=== PATIENT | female | born 1975 | race Caucasian/White ===

== ENCOUNTER 2016-04-28 11:39 | Emergency (ER) | payer BC ==
[2016-04-28 12:20] VITALS: BP 135/79
[2016-04-28] MEDS ORDERED: Ondansetron 4 MG Tab.DIS PO ONE (13:02)
--- NOTE | 2016-04-28 13:02 | EDM.PDOC ---
ED HPI ENT - General Chief Complaint: ENT Problem Stated Complaint: POSSIBLE SINUS INFECTION Time Seen by Provider: 04/28/16 12:53 Source of Information: Reports: Patient History Limitations: Reports: No limitations - History of Present Illness INITIAL COMMENTS - FREE TEXT/NARRATIVE: HISTORY AND PHYSICAL: History of present illness: [40-year-old female recently diagnosed by primary care with sinusitis and prescribed Zithromax now presents emergency department because of continued sinus congestion body aches and nausea and vomiting patient denies possibility of because she's had her tubes tied. She has clear rhinorrhea with sinus pressure and congestion. Patient feels body aches and fatigue. She's had these symptoms for several days. Denies fevers chills sweats or shaking chills. No headache or stiff neck. Patient is concerned she may be getting dehydrated because she's been vomiting and unable to keep down fluids and medications. Review of systems: As per history of present illness and below otherwise all systems reviewed and negative. Past medical history: As per history of present illness and as reviewed below otherwise noncontributory. Surgical history: As per history of present illness and as reviewed below otherwise noncontributory. Social history: No reported history of drug or alcohol abuse. Family history: As per history of present illness and as reviewed below otherwise noncontributory. Physical exam: HEENT: Atraumatic, normocephalic, pupils reactive, negative for conjunctival pallor or scleral icterus, mucous membranes moist, throat clear, neck supple, nontender, trachea midline. Clear rhinorrhea. Lungs: Clear to auscultation, breath sounds equal bilaterally, chest nontender. Heart: S1S2, regular, negative for clicks, rubs, or JVD. Abdomen: Soft, nondistended, nontender. Negative for masses or hepatosplenomegaly. Negative for costovertebral tenderness. Pelvis: Stable nontender. Genitourinary: Deferred. Rectal: Deferred. Extremities: Atraumatic, negative for cords or calf pain. Neurovascular unremarkable. Neuro: Awake, alert, oriented. Cerebellum unremarkable. Motor and sensory unremarkable throughout. Exam nonfocal. Diagnostics: [] Therapeutics: [] Impression: [] Plan: [Discussed with patient signs and symptoms consistent with viral syndrome. He is aware to rest and drink plenty of fluids as well as use Zofran as needed for nausea. No further workup or treatment indicated at this time as patient's vital signs are normal and her mucous members are moist. She has no significant clinical signs of dehydration. Clear rhinorrhea exam otherwise benign. Patient agrees with outpatient followup. strict return precautions given. Definitive disposition and diagnosis as appropriate pending reevaluation and review of above. Severity: moderate - Related Data Allergies/ADRs: Allergies Allergy/AdvReac Type Severity Reaction Status Date / Time codeine Allergy Nausea Verified 04/28/16 12:11 Home Meds: Home Meds Lactobac Cmb #3/Fos/Pantethine [Probiotic & Acidophilus] 1 cap PO DAILY [History] QUEtiapine Fumarate [Seroquel] 1 tab PO BEDTIME 05/14/15 [History] Ondansetron [Zofran ODT] 4 mg SL Q4H PRN #16 tab.dis 04/28/16 [Rx] Prednisone [IJD: predniSONE] 20 mg PO WITHBREAKFAST 04/28/16 [History] Z-Pack 1 tab PO ASDIRECTED 04/28/16 [History] Past Medical History HEENT History: Reports: Other (see below) Other HEENT History: wears glasses Cardiovascular History: Reports: None Respiratory History: Reports: None Gastrointestinal History: Reports: None Genitourinary History: Reports: Renal calculus, Other (see below) Other Genitourinary History: history of kidney stones in 2010, resolved, no return of symptoms 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 Musculoskeletal History: Reports: Arthritis, Fracture Other Musculoskeletal History: hx of right shoulder fx, has pain in right shoulder and both knees Neurological History: Reports: None Psychiatric History: Reports: Anxiety Endocrine/Metabolic History: Reports: None Hematologic History: Reports: None Immunologic History: Reports: None Oncologic (Cancer) History: Reports: None Dermatologic History: Reports: Psoriasis Other Dermatologic History: legs and chest - Infectious Disease History Infectious Disease History: Reports: Chicken pox - Past Surgical History Head Surgeries/Procedures: Reports: None HEENT Surgical History: Reports: None Cardiovascular Surgical History: Reports: None Respiratory Surgical History: Reports: None GI Surgical History: Reports: EGD Female Surgical History: Reports: None Endocrine Surgical History: Reports: None Neurological Surgical History: Reports: None Musculoskeletal Surgical History: Reports: Arthroscopic knee Oncologic Surgical History: Reports: None Social & Family History - Tobacco Use Smoking Status *Q: Never Smoker Years of Tobacco use: 15 Packs/Tins Daily: 0.5 Second Hand Smoke Exposure: No - Caffeine Use Caffeine Use: Reports: Coffee Caffeine Use Comment: 1 cup/day - Alcohol Use Days Per Week of Alcohol Use: 0 - Recreational Drug Use Recreational Drug Use: No Drug Use in Last 12 Months: No ED ROS ENT - Review of Systems Review Of Systems: See Below (See history of present illness) ED EXAM, ENT - Physical Exam Exam: See Below (See history of present illness) Course - Vital Signs Last Recorded V/S: Last Vital Signs Temp 36.4 C 04/28/16 12:14 Pulse 70 04/28/16 12:14 Resp 18 04/28/16 12:14 BP 135/79 04/28/16 12:14 Pulse Ox 92 L 04/28/16 12:14 - Orders/Labs/Meds Meds: Medications Discontinued Medications Generic Name Dose Route Start Last Admin Trade Name Freq PRN Reason Stop Dose Admin Ondansetron HCl 4 mg 04/28/16 13:02 Zofran Odt PO 04/28/16 13:03 ONETIME ONE Departure - Departure Time of Disposition: 13:02 Disposition: Home, Self-Care 01 Condition: good Clinical Impression: Viral syndrome, Sinusitis, acute, Vomiting Prescriptions: Ondansetron [Zofran ODT] 4 mg SL Q4H PRN #16 tab.dis PRN Reason: Nausea Referrals: Mary Valadez DO [Primary Care Provider] - Forms: ED Department Discharge Additional Instructions: Your symptoms suggest a you have a viral syndrome. Your sinus congestion and pressure may be from the viral infection along however your DrEmily has prescribe Zithromax for you in case of the possibility of bacterial infection. Rest and drink plenty of fluids. Use ibuprofen every 6 hours as needed for pain and Tylenol every 4 hours as well as needed. Take Zofran as needed for nausea/ vomiting. Follow up with your DrEmily in one to 2 days and return immediately for new severe or worsening symptoms.
== END 2016-04-28 13:27 | disposition home or self-care (01) ==
LOC: MW.ED 11:39
DX: J32.9 Chronic sinusitis, unspecified (principal); R11.10 Vomiting, unspecified; B34.9 Viral infection, unspecified; Z88.5 Allergy status to narcotic agent; Z79.899 Other long term (current) drug therapy
CPT/HCPCS: 99282; 99283

== ENCOUNTER → 2016-06-04 | Outpatient (CLI) | payer BC ==
--- NOTE | 2016-06-04 11:29 | MR ---
EXAMINATION: MRI right knee HISTORY: Pain COMPARISON: None TECHNIQUE: Multiplanar multisequence images obtained of the right knee without contrast. FINDINGS: The patellar and quadriceps tendons are intact. The ACL and the PCL are intact. There is a horizontal tear of the posterior horn of the medial meniscus with mild truncation of the body. The lateral meniscus appears grossly intact. The medial and lateral collateral ligament complexes appear intact. There is a small joint effusion. There are notably thickened plicae within the suprapatella r joint space. Moderate articular cartilage thinning and irregularity is noted within the patellofem oral compartment. Mild articular cartilage irregularity is noted within the medial compartment. Ther e is a trace edema within the posterior aspect of the tibial plateau. IMPRESSION: 1. Horizontal tear of the posterior horn of the medial meniscus. 2. Moderate chondromalacia patellae with irregular and thickened plicae within the suprapatellar kristofer nt space. 3. Mild chondromalacia within the medial compartment.
== END ==
LOC: MW.MRI 08:24
PROVIDERS: ATTEND Orthopaedic Surgery
DX: M24.561 Contracture, right knee (principal); S83.241A Other tear of medial meniscus, current injury, right knee, initial encounter; M22.41 Chondromalacia patellae, right knee
CPT/HCPCS: 73721-26-RT; 73721-RT

== ENCOUNTER 2016-10-12 10:25 | Day surgery (SDC) | payer BC ==
[~2016-10-12 10:25] MED LIST: Lactated Ringers 1,000 ML IV SCH; Propofol 200 MG/20 ML SDV ONE; Sodium Chloride 0.9% 10 ML Syringe FLUSH PRN; Sodium Chloride 0.9% 2.5 ML Syringe FLUSH PRN; fentaNYL 100 MCG/2 ML SDV ONE
[2016-10-12] MEDS ORDERED: Midazolam 1 MG/ML 2 ML SDV ONE (10:26)
[2016-10-12] MEDS ORDERED: Dexamethasone 4 MG/ML 5 ML MDV ONE (10:27)
[2016-10-12] MEDS ORDERED: Ondansetron 4 MG/2 ML SDV ONE (10:27)
--- NOTE | 2016-10-12 11:09 | PCM.PREANE ---
Preanesthetic Assessment - Anesthesia/Transfusion/Family Hx Anesthesia History: Prior Anesthesia Without Reaction Family History of Anesthesia Reaction: No Transfusion History: No Prior Transfusion(s) Intubation History: Unknown - Review of Systems General: No Symptoms Pulmonary: No Symptoms Cardiovascular: No Symptoms Gastrointestinal: No Symptoms Neurological: No Symptoms Other: Reports: None - Physical Assessment NPO Status Date: 10/11/16 NPO Status Time: 20:30 O2 Sat by Pulse Oximetry: 98 Respiratory Rate: 16 Vital Signs: Last Vital Signs Temp 36.6 C 10/12/16 10:47 Pulse 50 L 10/12/16 10:47 Resp 16 10/12/16 10:47 BP 112/77 10/12/16 10:47 Pulse Ox 98 10/12/16 10:47 Height: 1.68 m Weight: 63.049 kg ASA Class: 1 Mental Status: Alert & Oriented x3 Airway Class: Mallampati = 2 Dentition: Reports: Normal Dentition Thyro-Mental Finger Breadths: 3 Mouth Opening Finger Breadths: 3 ROM/Head Extension: Full Lungs: Clear to Auscultation, Normal Respiratory Effort Cardiovascular: Regular Rate, Regular Rhythm - Lab Values: Laboratory Last Values WBC 6.90 K/uL (4.0-11.0) 10/12/16 10:45 RBC 5.05 M/uL (4.30-5.90) 10/12/16 10:45 Hgb 15.0 g/dL (12.0-16.0) 10/12/16 10:45 Hct 43.4 % (36.0-46.0) 10/12/16 10:45 MCV 85.9 fL (80.0-98.0) 10/12/16 10:45 MCH 29.7 pg (27.0-32.0) 10/12/16 10:45 MCHC 34.6 g/dL (31.0-37.0) 10/12/16 10:45 RDW Std Deviation 40.6 fl (28.0-62.0) 10/12/16 10:45 RDW Coeff of Pallavi 13 % (11.0-15.0) 10/12/16 10:45 Plt Count 174 K/uL (150-400) 10/12/16 10:45 MPV 11.40 fL (7.40-12.00) 10/12/16 10:45 Nucleated RBC % 0.0 /100WBC 10/12/16 10:45 Nucleated RBCs # 0 K/uL 10/12/16 10:45 - Allergies Allergies/Adverse Reactions: Allergies Allergy/AdvReac Type Severity Reaction Status Date / Time codeine Allergy Nausea Verified 04/28/16 12:11 - Blood Blood Available: No - Anesthesia Plan Pre-Op Medication Ordered: None - Acknowledgements Anesthesia Type Planned: MAC Pt an Appropriate Candidate for the Planned Anesthesia: Yes Alternatives and Risks of Anesthesia Discussed w Pt/Guardian: Yes Pt/Guardian Understands and Agrees with Anesthesia Plan: Yes PreAnesthesia Questionnaire HEENT History: Reports: Other (See Below) Other HEENT History: wears glasses Cardiovascular History: Reports: None Respiratory History: Reports: None Gastrointestinal History: Reports: Other (See Below) Other Gastrointestinal History: hx gastric ulcer, occasional heartburn Genitourinary History: Reports: Renal Calculus, Other (See Below) Other Genitourinary History: history of kidney stones 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: Musculoskeletal History: Reports: Arthritis Neurological History: Reports: None Psychiatric History: Reports: Anxiety Endocrine/Metabolic History: Reports: None Hematologic History: Reports: None Immunologic History: Reports: None Oncologic (Cancer) History: Reports: None Dermatologic History: Reports: Psoriasis - Infectious Disease History Infectious Disease History: Reports: Chicken Pox - Past Surgical History Head Surgeries/Procedures: Reports: None HEENT Surgical History: Reports: None, Oral Surgery Cardiovascular Surgical History: Reports: None Respiratory Surgical History: Reports: None GI Surgical History: Reports: EGD Female Surgical History: Reports: LEEP, Tubal Ligation Endocrine Surgical History: Reports: None Neurological Surgical History: Reports: None Musculoskeletal Surgical History: Reports: Arthroscopic Knee Other Musculoskeletal Surgeries/Procedures:: multiple knee arthroscopies (4 on the right and 2 on the left) Oncologic Surgical History: Reports: None - SUBSTANCE USE Smoking Status *Q: Former Smoker (quit 9 [id number] ago) Tobacco Use Within Last Twelve Months:  Second Hand Smoke Exposure: No Days Per Week of Alcohol Use: 0 Recreational Drug Use History: No - HOME MEDS Home Medications: Home Meds Lactobac Cmb #3/Fos/Pantethine [Probiotic & Acidophilus] 1 cap PO DAILY [History] QUEtiapine Fumarate [Seroquel] 1 tab PO BEDTIME 05/14/15 [History] cloNIDine HCl [Catapres] 0.1 mg PO BEDTIME 10/06/16 [History] - CURRENT (IN HOUSE) MEDS Current Meds: Current Medications Lactated Ringer's (Ringers, Lactated) 1,000 mls @ 125 mls/hr IV ASDIRECTED CHEKO Sodium Chloride (Saline Flush) 10 ml FLUSH ASDIRECTED PRN PRN Reason: Keep Vein Open Sodium Chloride (Saline Flush) 2.5 ml FLUSH ASDIRECTED PRN PRN Reason: Keep Vein Open Discontinued Medications Dexamethasone (Dexamethasone) Confirm Administered Dose 20 mg .ROUTE .STK-MED ONE Stop: 10/12/16 10:28 Fentanyl (Sublimaze) Confirm Administered Dose 100 mcg .ROUTE .STK-MED ONE Stop: 10/12/16 10:26 Lidocaine HCl (Xylocaine-Mpf 1%) Confirm Administered Dose 5 ml .ROUTE .STK-MED ONE Stop: 10/12/16 10:28 Midazolam HCl (Versed 1 Mg/Ml) Confirm Administered Dose 2 mg .ROUTE .STK-MED ONE Stop: 10/12/16 10:27 Ondansetron HCl (Zofran) Confirm Administered Dose 4 mg .ROUTE .STK-MED ONE Stop: 10/12/16 10:28 Propofol (Diprivan 20 Ml) Confirm Administered Dose 200 mg .ROUTE .STK-MED ONE Stop: 10/12/16 10:26
[2016-10-12] MEDS ORDERED: Lidocaine 1% with EPINEPHrine 1:100,000 20 ML MDV ONE ×2 (11:32→12:25)
--- NOTE | 2016-10-12 11:50 | PCM.OPNOTE ---
- General Post-Op/Procedure Note Date of Surgery/Procedure: 10/12/16 Operative Procedure(s): LEEP of cervix Findings: BROOKS II Pre Op Diagnosis: BROOKS II Post-Op Diagnosis: Same Anesthesia Technique: General LMA Primary Surgeon: Tere Turner Pathology: cervix Fluid Replacement, Intraop: 600 EBL in mLs: 10 Condition: Good Free Text/Narrative:: Dictation [id number]
[2016-10-12] MEDS ORDERED: fentaNYL 100 MCG/2 ML SDV ONE ×2 (12:03→12:32)
[2016-10-12] MEDS: fentaNYL 100 MCG/2 ML SDV IVPUSH PRN ×2 (12:32→12:37)
[2016-10-12 13:02] VITALS: BP 110/76
--- NOTE | 2016-10-12 20:41 | OR ---
SURGEON: Tere Turner M.D. DATE OF PROCEDURE: 10/12/2016 PREOPERATIVE DIAGNOSIS: BROOKS II. POSTOPERATIVE DIAGNOSIS: BROOKS II. PROCEDURE: Loop electrosurgical excision procedure of the cervix. ESTIMATED BLOOD LOSS: 10 mL. ANESTHESIA: General LMA. FLUIDS: 600 mL crystalloid. COMPLICATIONS: None known. FINDINGS: BROOKS II. DISPOSITION: The patient to PACU, stable. PROCEDURE IN DETAIL: Iris is a 40-year-old female, who has had ongoing difficulties with persistent BROOKS II. She has recently had a colposcopy which confirmed BROOKS II on biopsy. At this point, we have discussed options for treatment and she would like to proceed with surgical intervention from a LEEP. Risks of procedure have been discussed with her and proper consent was obtained. The patient was taken to the operating room, where she underwent general LMA. She was placed in modified dorsal lithotomy position. She was prepped and draped in the usual aseptic manner. The bladder was drained. A time-out was performed. A coated speculum was introduced in the vagina as well as sidewall retractors. The cervix was visualized. The cervix was now prepped with Lugol solution and then injected with 1% lidocaine with epinephrine circumferentially along the cervix. Please see nurse's notes for total amount of local dispensed during the procedure. Using a 20 x 8 mm loop, the posterior lip of the cervix was excised followed by the anterior lip. A 10 mm endocervical hat was now excised. The cervical os was sounded with an endocervical curette to help diminish the rest of her stenosis. The bed of the wound was now cauterized with rollerball followed by placement of Monsel's. Hemostasis appeared evident. The patient tolerated the procedure well. Sponge and instrument counts were correct x2. All instruments were removed from the vagina. The patient will go to PACU in stable condition. Specimens to pathology. JAMEE / MAKAYLA /[id number]
== END 2016-10-12 13:05 | disposition home or self-care (01) ==
LOC: MW.SDS 10:25
PROVIDERS: ATTEND Obstetrics & Gynecology
DX: N87.1 Moderate cervical dysplasia (principal); F41.8 Other specified anxiety disorders; Z88.8 Allergy status to other drugs, medicaments and biological substances; Z79.899 Other long term (current) drug therapy; Z98.890 Other specified postprocedural states; Z87.891 Personal history of nicotine dependence
CPT/HCPCS: 57522; 85027; J1100; J2250; J2405; J3010; 00940; 88305; 88307; J2704

== ENCOUNTER 2016-11-23 08:43 | Emergency (ER) | payer BC ==
[2016-11-23 09:00] VITALS: BP 138/91
[2016-11-23] MEDS ORDERED: Ketorolac 30 MG/ML SDV IM ONE (09:16)
--- NOTE | 2016-11-23 09:31 | EDM.PDOC ---
<Kelsey Hameed - Last Filed: 11/23/16 11:07> ED HPI GENERAL MEDICAL PROBLEM - General Chief Complaint: Lower Extremity Injury/Pain Stated Complaint: CUT ON RT KNEE Time Seen by Provider: 11/23/16 09:10 - History of Present Illness INITIAL COMMENTS - FREE TEXT/NARRATIVE: This is Dr. Hameed dictating an addendum note as he supervising physician on this case. I personally seen and evaluated this patient and agree with above findings. The knee itself is not swollen there is no joint effusion there is no erythema or warmth there are no palpable bony deformities. The patient has some decreased range of motion due to discomfort. She ambulated into the ED with a slight limp. We'll perform x-ray and given a shot of Toradol and reevaluate pending those findings but I anticipate that she will need to be in a knee immobilizer and have crutches and follow-up with her orthopedic surgeon for further care and evaluation - Related Data Allergies Allergy/AdvReac Type Severity Reaction Status Date / Time codeine Allergy Nausea Verified 11/23/16 09:02 Home Meds: Home Meds Lactobac Cmb #3/Fos/Pantethine [Probiotic & Acidophilus] 1 cap PO DAILY [History] QUEtiapine Fumarate [Seroquel] 1 tab PO BEDTIME 05/14/15 [History] cloNIDine HCl [Catapres] 0.1 mg PO BEDTIME 10/06/16 [History] Ketorolac [Toradol] 10 mg PO Q6H PRN #20 tablet 11/23/16 [Rx] Course - Vital Signs Last Recorded V/S: Last Vital Signs Temp 36.7 C 11/23/16 08:57 Pulse 68 11/23/16 08:57 Resp 16 11/23/16 08:57 BP 138/91 H 11/23/16 08:57 Pulse Ox 98 11/23/16 08:57 - Orders/Labs/Meds Meds: Medications Discontinued Medications Generic Name Dose Route Start Last Admin Trade Name Freq PRN Reason Stop Dose Admin Ketorolac Tromethamine 30 mg 11/23/16 09:16 11/23/16 09:27 Toradol IM 11/23/16 09:17 30 mg ONETIME ONE Administration Departure - Departure Disposition: Home, Self-Care 01 Clinical Impression: Right medial knee pain, Acute meniscal injury of right knee - Discharge Information Prescriptions: Ketorolac [Toradol] 10 mg PO Q6H PRN #20 tablet PRN Reason: Pain Instructions: Knee Pain Referrals: Chriss Light DO [Primary Care Provider] - Lisy Solomon MD [Physician] - Forms: ED Department Discharge Additional Instructions: The following information is given to patients seen in the emergency department who are being discharged to home. This information is to outline your options for follow-up care. We provide all patients seen in our emergency department with a follow-up referral. The need for follow-up, as well as the timing and circumstances, are variable depending upon the specifics of your emergency department visit. If you don't have a primary care physician on staff, we will provide you with a referral. We always advise you to contact your personal physician following an emergency department visit to inform them of the circumstance of the visit and for follow-up with them and/or the need for any referrals to a consulting specialist. The emergency department will also refer you to a specialist when appropriate. This referral assures that you have the opportunity for follow-up care with a specialist. All of these measure are taken in an effort to provide you with optimal care, which includes your follow-up. Under all circumstances we always encourage you to contact your private physician who remains a resource for coordinating your care. When calling for follow-up care, please make the office aware that this follow-up is from your recent emergency room visit. If for any reason you are refused follow-up, please contact the [facility] Emergency Department at and asked to speak to the emergency department charge nurse. Diagnosis: Right knee pain likely secondary to right meniscal reinjury. Impressions/follow-up: Based on history and physical, as well as your x-ray of the right knee you have most likely reinjured the right meniscus. Will require a knee immobilizer as well as crutches, and restrictive/alterated work. You' ll need to follow up with Dr. Solomon in the outpatient clinic. He may take ibuprofen every 4 hours as needed for the pain. When you take the knee immobilizer off you may put ice on the affected knee. If you have any worsening symptoms please come back to the ER or follow up with her primary care physician. Dr. Lisy Solomon, Orthopedic clinic [address] [place] [address] [address] [facility], [address] <Juan JyusramirnaJorge Z - Last Filed: 11/23/16 11:14> ED HPI GENERAL MEDICAL PROBLEM - General Source of Information: Reports: Patient History Limitations: Reports: No Limitations - History of Present Illness INITIAL COMMENTS - FREE TEXT/NARRATIVE: HISTORY AND PHYSICAL: History of present illness: 41-year-old female presenting with injury to her right knee. Patient has a significant past medical history of bilateral meniscus tears and repair with the most repair occurring on the right knee in [place], [place]. Patient states that she occurred yesterday, patient was chasing after her dogs jumped down a set of stairs and assumes she landed she states that she heard a pop and a pain sensation throughout the upper aspects of her right knee. Patient states that the pain is primarily located medial to the patella. Patient denies any effusion , edema, erythema on the affected knee throughout the entire process. Patient after the injury stated that she sat down for a little bit, the pain subsided and the patient continued on with her day-to-day activity while favoring her left side in terms of weight distribution. However overnight the pain became overwhelming primarily again located on the medial to the patella. Patient put ice on the affected knee and took a total of 600 mg of ibuprofen yesterday. This morning upon waking the patient stated that it took her about 15 minutes to get up from bed and to be able to move the knee , patient became concerned and came into the ED. Patient was only partially able to bear weight on the knee secondary to pain. Patient is not on any medication, patient does not have a significant past medical history except for bilateral knee issues. Patient's past surgical history consists of bilateral meniscus tear repair. Review of systems: As per history of present illness and below otherwise all systems reviewed and negative. Past medical history: As per history of present illness and as reviewed below otherwise noncontributory. Surgical history: As per history of present illness and as reviewed below otherwise noncontributory. Social history: No reported history of drug or alcohol abuse. Family history: As per history of present illness and as reviewed below otherwise noncontributory. Physical exam: HEENT: Atraumatic, normocephalic, pupils reactive, negative for conjunctival pallor or scleral icterus, mucous membranes moist. Lungs: Clear to auscultation, breath sounds equal bilaterally, chest nontender. Heart: S1S2, regular, negative for clicks, rubs, or JVD. Extremities: Right knee does not appear to be effused, nor is it erythematous. On palpation of the right knee pain is elicited medial to the patella. Patient is unable to fully extend the knee passively or actively secondary to pain. Strength is decreased secondary to pain on the right knee. Carolann's test of the right knee does elicit clicking sensation. Thessaly test done while standing elicited pain. Anterior and posterior drawer tests negative. Varus and valgus test negative. Neurovascular unremarkable. Neuro: Awake, alert, oriented. Cranial nerves II through XII grossly unremarkable. Exam nonfocal. Diagnostics: 3V Knee x-ray Rt: Mild effusion, no fractures or other acute etiology appreciated Therapeutics: Ice pack, Toradol 1 time IM 30 mg Impression: 41-year-old female with significant past medical history of meniscal tear and repair of the right knee done in June of this year is presenting with acute right knee pain most likely etiology is reinjury of right meniscus. Based on history and physical septic knee is highly unlikely, we shall rule out other possible etiologies. Plan: Patient's right knee x-ray shows mild effusion, no fractures or other acute etiology. Patient is able to weight bear, patient shall be be discharged with immobilizer and crutches and she'll follow up with Dr. Solomon in an outpatient setting. Definitive disposition and diagnosis as appropriate pending reevaluation and review of above. 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: Musculoskeletal History: Reports: Arthritis Neurological History: Reports: None Psychiatric History: Reports: Anxiety Endocrine/Metabolic History: Reports: None Hematologic History: Reports: None Immunologic History: Reports: None Oncologic (Cancer) History: Reports: None Dermatologic History: Reports: Psoriasis - Infectious Disease History Infectious Disease History: Reports: Chicken Pox - Past Surgical History Head Surgeries/Procedures: Reports: None HEENT Surgical History: Reports: None, Oral Surgery Cardiovascular Surgical History: Reports: None Respiratory Surgical History: Reports: None GI Surgical History: Reports: EGD Female Surgical History: Reports: LEEP, Tubal Ligation Endocrine Surgical History: Reports: None Neurological Surgical History: Reports: None Musculoskeletal Surgical History: Reports: Arthroscopic Knee Other Musculoskeletal Surgeries/Procedures:: multiple knee arthroscopies (4 on the right and 2 on the left) Oncologic Surgical History: Reports: None Social & Family History - Family History Family Medical History: Noncontributory - Tobacco Use Smoking Status *Q: Never Smoker Years of Tobacco use: 15 Packs/Tins Daily: 0.5 Used Tobacco, but Quit: Yes Month Tobacco Last Used: quit smoking 9 months ago Second Hand Smoke Exposure: No - Caffeine Use Caffeine Use: Reports: Coffee Caffeine Use Comment: 1 cup/day - Alcohol Use Days Per Week of Alcohol Use: 0 - Recreational Drug Use Recreational Drug Use: No Drug Use in Last 12 Months: No Review of Systems - Review of Systems Review Of Systems: ROS reveals no pertinent complaints other than HPI. ED EXAM, GENERAL - Physical Exam Exam: See Below (Refer to history of presenting illness) Course - Orders/Labs/Meds Meds: Medications Discontinued Medications Generic Name Dose Route Start Last Admin Trade Name Jaredq PRN Reason Stop Dose Admin Ketorolac Tromethamine 30 mg 11/23/16 09:16 11/23/16 09:27 Toradol IM 11/23/16 09:17 30 mg ONETIME ONE Administration Departure - Departure Time of Disposition: 10:50 Condition: Good
--- NOTE | 2016-11-23 10:16 | CR ---
EXAMINATION: Right knee HISTORY: Pain COMPARISON: MRI dated 06/04/2016 TECHNIQUE: 3 views FINDINGS: Postsurgical changes noted within the proximal tibia. There is no fracture or acute osseous abnormality noted. There is a small to moderate joint effusion. Joint spaces and bone mineralization are otherwise preserved. Mild osteophyte formation noted within the lateral and medial compartments. IMPRESSION: 1. Small to moderate joint effusion without an acute osseous abnormality identified. 2. Postsurgical changes noted within the proximal tibia.
== END 2016-11-23 11:17 | disposition home or self-care (01) ==
LOC: MW.ED 08:43
DX: S83.8X1A Sprain of other specified parts of right knee, initial encounter (principal); M19.90 Unspecified osteoarthritis, unspecified site; L40.9 Psoriasis, unspecified; Z98.51 Tubal ligation status; Z98.890 Other specified postprocedural states; Z87.891 Personal history of nicotine dependence; Z79.899 Other long term (current) drug therapy; Z88.5 Allergy status to narcotic agent; X58.XXXA Exposure to other specified factors, initial encounter
CPT/HCPCS: 73562; 96372; 99283; J1885

== ENCOUNTER 2017-04-01 14:19 | Emergency (ER) | payer OTHER, BC ==
[2017-04-01 14:43] VITALS: BP 148/77
--- NOTE | 2017-04-01 14:43 | EDM.PDOC ---
ED HPI GENERAL MEDICAL PROBLEM - General Chief Complaint: Upper Extremity Injury/Pain Stated Complaint: FALL Time Seen by Provider: 04/01/17 14:41 - History of Present Illness INITIAL COMMENTS - FREE TEXT/NARRATIVE: HISTORY AND PHYSICAL: History of present illness: Patient 41-year-old female presents status post fall she injured her left wrist and forearm she reports this occurred at work she denies other trauma or concern Review of systems: As per history of present illness and below otherwise all systems reviewed and negative. Past medical history: As per history of present illness and as reviewed below otherwise noncontributory. Surgical history: As per history of present illness and as reviewed below otherwise noncontributory. Social history: No reported history of drug or alcohol abuse. Family history: As per history of present illness and as reviewed below otherwise noncontributory. Physical exam: HEENT: Atraumatic, normocephalic, pupils reactive, negative for conjunctival pallor or scleral icterus, mucous membranes moist, throat clear, neck supple, nontender, trachea midline. Lungs: Clear to auscultation, breath sounds equal bilaterally, chest nontender. Heart: S1S2, regular, negative for clicks, rubs, or JVD. Abdomen: Soft, nondistended, nontender. Negative for masses or hepatosplenomegaly. Negative for costovertebral tenderness. Pelvis: Stable nontender. Genitourinary: Deferred. Rectal: Deferred. Extremities: Left wrist and forearm are without obvious deformity there's no point tenderness range of motion is limited due to pain CMS in neurovascular exam are unremarkable. Neuro: Awake, alert, oriented. Cranial nerves II through XII unremarkable. Cerebellum unremarkable. Motor and sensory unremarkable throughout. Exam nonfocal. Diagnostics: X-ray left wrist/forearm Therapeutics: To be determined Impression: #1 observation status post fall #2 acute left wrist/forearm injury Definitive disposition and diagnosis as appropriate pending reevaluation and review of above. - Related Data Allergies Allergy/AdvReac Type Severity Reaction Status Date / Time codeine Allergy Nausea Verified 04/01/17 09:36 Home Meds: Home Meds Lactobac Cmb #3/Fos/Pantethine [Probiotic & Acidophilus] 1 cap PO DAILY [History] QUEtiapine Fumarate [Seroquel] 100 mg PO BEDTIME 05/14/15 [History] cloNIDine HCl [Catapres] 0.1 mg PO BEDTIME 10/06/16 [History] Ascorbic Acid/Collagen Hydr [Collagen Plus Vit C] 1 cap PO DAILY 04/01/17 [ History] Raspberry Ketone [Raspberry Ketones] 100 mg PO DAILY 04/01/17 [History] Past Medical History HEENT History: Reports: Other (See Below) Other HEENT History: wears glasses Cardiovascular History: Reports: None Respiratory History: Reports: None Gastrointestinal History: Reports: Other (See Below) Other Gastrointestinal History: hx gastric ulcer, occasional heartburn Genitourinary History: Reports: Renal Calculus, Other (See Below) Other Genitourinary History: history of kidney stones 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: Musculoskeletal History: Reports: Arthritis Neurological History: Reports: None Psychiatric History: Reports: Anxiety Endocrine/Metabolic History: Reports: None Hematologic History: Reports: None Immunologic History: Reports: None Oncologic (Cancer) History: Reports: None Dermatologic History: Reports: Psoriasis - Infectious Disease History Infectious Disease History: Reports: Chicken Pox - Past Surgical History HEENT Surgical History: Reports: Oral Surgery Other HEENT Surgeries/Procedures: wisdom teeth Musculoskeletal Surgical History: Reports: Arthroscopic Knee, Other (See Below) Other Musculoskeletal Surgeries/Procedures:: bilateral knee arthroscopies, bilateral patella release Social & Family History - Family History Family Medical History: Noncontributory - Tobacco Use Smoking Status *Q: Former Smoker Years of Tobacco use: 15 Packs/Tins Daily: 0.5 Used Tobacco, but Quit: Yes Month Tobacco Last Used: quit smoking 9 months ago Second Hand Smoke Exposure: No - Caffeine Use Caffeine Use: Reports: Coffee Caffeine Use Comment: 1 cup/day - Alcohol Use Days Per Week of Alcohol Use: 0 - Recreational Drug Use Recreational Drug Use: No Drug Use in Last 12 Months: No Review of Systems - Review of Systems Review Of Systems: ROS reveals no pertinent complaints other than HPI. ED EXAM, GENERAL - Physical Exam Exam: See Below (See dictation) Course - Vital Signs Last Recorded V/S: Last Vital Signs Temp 36.7 C 04/01/17 14:40 Pulse 66 04/01/17 14:40 Resp 18 04/01/17 14:40 BP 148/77 H 04/01/17 14:40 Pulse Ox 97 04/01/17 14:40 Departure - Departure Time of Disposition: 15:53 Disposition: Home, Self-Care 01 Condition: Good Clinical Impression: Wrist injury, Forearm injury - Discharge Information Referrals: PCP,None [Primary Care Provider] - Forms: ED Department Discharge Additional Instructions: The following information is given to patients seen in the emergency department who are being discharged to home. This information is to outline your options for follow-up care. We provide all patients seen in our emergency department with a follow-up referral. The need for follow-up, as well as the timing and circumstances, are variable depending upon the specifics of your emergency department visit. If you don't have a primary care physician on staff, we will provide you with a referral. We always advise you to contact your personal physician following an emergency department visit to inform them of the circumstance of the visit and for follow-up with them and/or the need for any referrals to a consulting specialist. The emergency department will also refer you to a specialist when appropriate. This referral assures that you have the opportunity for followup care with a specialist. All of these measure are taken in an effort to provide you with optimal care, which includes your followup. Under all circumstances we always encourage you to contact your private physician who remains a resource for coordinating your care. When calling for followup care, please make the office aware that this follow-up is from your recent emergency room visit. If for any reason you are refused follow-up, please contact the [facility] emergency department at and asked to speak to the emergency department charge nurse. Motrin as prescribed sling as directed follow-up occupational health call to schedule appointment return as needed as discussed
--- NOTE | 2017-04-01 15:20 | CR ---
EXAMINATION: Left wrist and left forearm HISTORY: Pain COMPARISON: None TECHNIQUE: 2 views of the left wrist and 2 views of the forearm FINDINGS: There is no acute osseous abnormality, dislocation, or fracture. Mild subchondral cystic ch yaa noted at the distal radioulnar joint. No elbow joint effusion. No focal soft tissue swelling. Timmy ne mineralization is otherwise normal. Radiocarpal and radiocapitellar alignments are preserved. Mild negative ulnar variance. IMPRESSION: Mild degenerative changes within the wrist otherwise no acute findings.
== END 2017-04-01 16:13 | disposition home or self-care (01) ==
LOC: MW.ED 14:19
DX: S69.92XA Unspecified injury of left wrist, hand and finger(s), initial encounter (principal); S59.912A Unspecified injury of left forearm, initial encounter; Z87.891 Personal history of nicotine dependence; Z79.899 Other long term (current) drug therapy; Z88.5 Allergy status to narcotic agent; W19.XXXA Unspecified fall, initial encounter; Y99.0 Civilian activity done for income or pay
CPT/HCPCS: 73090; 73100; 99283; A4566

== ENCOUNTER 2017-04-04 07:49 | Day surgery (SDC) | payer BC ==
[~2017-04-04 07:49] MED LIST changes: +Lidocaine 1% 20 ML MDV ONE; -Propofol 200 MG/20 ML SDV ONE; -Sodium Chloride 0.9% 10 ML Syringe FLUSH PRN; -Sodium Chloride 0.9% 2.5 ML Syringe FLUSH PRN; +ceFAZolin 1 GM in Premix Bag 1 BAG IV SCH; -fentaNYL 100 MCG/2 ML SDV ONE
[2017-04-04] MEDS ORDERED: Acetaminophen/HYDROcodone 325-5 MG Tab PO PRN (08:00)
[2017-04-04] MEDS ORDERED: Ondansetron 4 MG/2 ML SDV ONE (08:20)
[2017-04-04] MEDS ORDERED: Propofol 200 MG/20 ML SDV ONE (08:20)
[2017-04-04] MEDS ORDERED: fentaNYL 100 MCG/2 ML SDV ONE ×2 (08:20→11:29)
[2017-04-04] MEDS ORDERED: Midazolam 1 MG/ML 2 ML SDV ONE (08:20)
[2017-04-04] MEDS ORDERED: Lidocaine 2% 5 ML SDV ONE (08:20)
[2017-04-04] MEDS ORDERED: fentaNYL 100 MCG/2 ML SDV IVPUSH PRN (08:39)
--- NOTE | 2017-04-04 10:05 | PCM.PREANE ---
Preanesthetic Assessment - Procedure Proposed Procedure: right knee arthroscopy with partial medial menisectomy - Anesthesia/Transfusion/Family Hx Anesthesia History: Prior Anesthesia Without Reaction Family History of Anesthesia Reaction: No Transfusion History: No Prior Transfusion(s) Intubation History: Unknown - Review of Systems Other: Reports: None - Physical Assessment NPO Status Date: 04/03/17 NPO Status Time: 23:00 O2 Sat by Pulse Oximetry: 100 Respiratory Rate: 16 Vital Signs: Last Vital Signs Temp 36.4 C 04/04/17 08:08 Pulse 68 04/04/17 08:08 Resp 16 04/04/17 08:08 BP 122/76 04/04/17 08:08 Pulse Ox 100 04/04/17 08:08 Height: 5 ft 6 in Weight: 61.235 kg ASA Class: 1 Mental Status: Alert & Oriented x3 Airway Class: Mallampati = 1 Dentition: Reports: Normal Dentition Thyro-Mental Finger Breadths: 3 Mouth Opening Finger Breadths: 3 ROM/Head Extension: Full - Lab Values: Laboratory Last Values Urine HCG, Qual NEGATIVE (NEGATIVE) 04/04/17 08:05 - Allergies Allergies/Adverse Reactions: Allergies Allergy/AdvReac Type Severity Reaction Status Date / Time codeine Allergy Nausea Verified 04/01/17 09:36 - Blood Blood Available: No - Acknowledgements Anesthesia Type Planned: General Anesthesia (LMA) Pt an Appropriate Candidate for the Planned Anesthesia: Yes Alternatives and Risks of Anesthesia Discussed w Pt/Guardian: Yes Pt/Guardian Understands and Agrees with Anesthesia Plan: Yes PreAnesthesia Questionnaire HEENT History: Reports: Other (See Below) Other HEENT History: wears glasses Cardiovascular History: Reports: None Respiratory History: Reports: None Gastrointestinal History: Reports: Other (See Below) Other Gastrointestinal History: hx gastric ulcer, occasional heartburn Genitourinary History: Reports: Renal Calculus, Other (See Below) Other Genitourinary History: history of kidney stones 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: Musculoskeletal History: Reports: Arthritis Neurological History: Reports: None Psychiatric History: Reports: Anxiety Endocrine/Metabolic History: Reports: None Hematologic History: Reports: None Immunologic History: Reports: None Oncologic (Cancer) History: Reports: None Dermatologic History: Reports: Psoriasis - Infectious Disease History Infectious Disease History: Reports: Chicken Pox - Past Surgical History Head Surgeries/Procedures: Reports: None HEENT Surgical History: Reports: Oral Surgery Other HEENT Surgeries/Procedures: wisdom teeth Cardiovascular Surgical History: Reports: None Respiratory Surgical History: Reports: None GI Surgical History: Reports: EGD Female Surgical History: Reports: LEEP, Tubal Ligation Endocrine Surgical History: Reports: None Neurological Surgical History: Reports: None Musculoskeletal Surgical History: Reports: Arthroscopic Knee, Other (See Below) Other Musculoskeletal Surgeries/Procedures:: bilateral knee arthroscopies, bilateral patella release Oncologic Surgical History: Reports: None - SUBSTANCE USE Smoking Status *Q: Former Smoker Tobacco Use Within Last Twelve Months: No Second Hand Smoke Exposure: No Days Per Week of Alcohol Use: 0 Recreational Drug Use History: No - HOME MEDS Home Medications: Home Meds Lactobac Cmb #3/Fos/Pantethine [Probiotic & Acidophilus] 1 cap PO DAILY [History] QUEtiapine Fumarate [Seroquel] 100 mg PO BEDTIME 05/14/15 [History] cloNIDine HCl [Catapres] 0.1 mg PO BEDTIME 10/06/16 [History] Ascorbic Acid/Collagen Hydr [Collagen Plus Vit C] 1 cap PO DAILY 04/01/17 [ History] Raspberry Ketone [Raspberry Ketones] 100 mg PO DAILY 04/01/17 [History] - CURRENT (IN HOUSE) MEDS Current Meds: Current Medications Hydrocodone Bitart/Acetaminophen ([place] 325-5 Mg) 1 - 2 tab PO Q4H PRN PRN Reason: Pain Fentanyl (Sublimaze) 50 mcg IVPUSH .Q5MIN PRN PRN Reason: Pain Cefazolin Sodium/Dextrose 1 gm (/ Premix) 50 mls @ 100 mls/hr IV ONCALL CHEKO Lactated Ringer's (Ringers, Lactated) 1,000 mls @ 100 mls/hr IV ASDIRECTED CHEKO Last Admin: 04/04/17 08:16 Dose: 100 mls/hr Discontinued Medications Fentanyl (Sublimaze) Confirm Administered Dose 100 mcg .ROUTE .STK-MED ONE Stop: 04/04/17 08:21 Lidocaine (Xylocaine-Mpf 2%) Confirm Administered Dose 5 ml .ROUTE .STK-MED ONE Stop: 04/04/17 08:21 Lidocaine HCl (Xylocaine 1%) Confirm Administered Dose 20 ml .ROUTE .STK-MED ONE Stop: 04/04/17 07:15 Midazolam HCl (Versed 1 Mg/Ml) Confirm Administered Dose 2 mg .ROUTE .STK-MED ONE Stop: 04/04/17 08:21 Ondansetron HCl (Zofran) Confirm Administered Dose 4 mg .ROUTE .STK-MED ONE Stop: 04/04/17 08:21 Propofol (Diprivan 20 Ml) Confirm Administered Dose 200 mg .ROUTE .STK-MED ONE Stop: 04/04/17 08:21
[2017-04-04] MEDS ORDERED: ceFAZolin 1 GM Vial ONE (10:57)
[2017-04-04] MEDS ORDERED: Ketorolac 30 MG/ML SDV ONE (11:34)
--- NOTE | 2017-04-04 11:55 | PCM.OPNOTE ---
- General Post-Op/Procedure Note Date of Surgery/Procedure: 04/04/17 Operative Procedure(s): R knee scope with PMM Post-Op Diagnosis: DJD R knee, R knee med meniscus tear Anesthesia Technique: General LMA Primary Surgeon: Lisy Solomon Carpet Cleaner: Marco Velazquez in mLs: 5 Condition: Good Free Text/Narrative:: tt=27 min #[id number]
--- NOTE | 2017-04-04 13:04 | PCM.POSTAN ---
POST ANESTHESIA ASSESSMENT - MENTAL STATUS Mental Status: Alert, Oriented - RESPIRATORY Respiratory Status: Respiratory Rate WNL, Airway Patent, O2 Saturation Stable - CARDIOVASCULAR CV Status: Pulse Rate WNL, Blood Pressure Stable - GASTROINTESTINAL GI Status: No Symptoms - PAIN Pain Score: 2 - POST OP HYDRATION Hydration Status: Adequate & Stable
--- NOTE | 2017-04-04 13:05 | PCM48HPAN ---
Post Anesthesia Note - EVALUATION WITHIN 48HRS OF ANESTHETIC Vital Signs in Normal Range: Yes Patient Participated in Evaluation: Yes Respiratory Function Stable: Yes Airway Patent: Yes Cardiovascular Function Stable: Yes Hydration Status Stable: Yes Pain Control Satisfactory: Yes Nausea and Vomiting Control Satisfactory: Yes Mental Status Recovered: Yes Resp Rate: 13
[2017-04-04 13:09] VITALS: BP 110/65
--- NOTE | 2017-04-04 13:34 | OR ---
SURGEON: Lisy Solomon MD DATE OF PROCEDURE: 04/04/2017 PREOPERATIVE DIAGNOSIS: Right knee medial meniscus tear. POSTOPERATIVE DIAGNOSES: 1. Right knee medial meniscus tear. 2. Degenerative joint disease of right knee. PROCEDURE: Right knee arthroscopy with partial medial meniscectomy. ASSISTANT COMMUNITY MANAGER: Marco Kurtz MD, PGY3. ANESTHESIA: General. ESTIMATED BLOOD LOSS: 5 mL. TOURNIQUET TIME: 27 minutes. COMPLICATIONS: None. DVT PROPHYLAXIS: Not indicated. IMPLANTS USED: None. BRIEF HISTORY: Iris is a 41-year-old female, who has had complaint of progressive right knee pain. She had failed conservative treatment. At that time, I recommended that she undergo surgical treatment. The risks and goals of procedure were discussed with the patient and were documented preoperatively. She agreed to proceed. DESCRIPTION OF PROCEDURE: The patient was properly identified and brought to the operating room. She was transferred from the OR cart and placed on the operating table in supine position. General anesthesia was administered. After adequate anesthesia was obtained, a well-padded tourniquet was applied to the right lower extremity. The right lower extremity was then prepped in standard fashion using ChloraPrep solution. It was then sterilely draped. A time-out was performed to ensure correct site and procedure. Preoperative antibiotics were given. The surgical site had been marked preoperatively. An Esmarch was used to exsanguinate the right lower extremity and the tourniquet was inflated to 250 mmHg. A lateral portal arthrotomy was established. Blunt trocar and cannula were introduced into the suprapatellar pouch. Camera, inflow, and outflow were assembled. No significant synovitis was noted within the suprapatellar pouch. The patellofemoral joint was visualized. The patella appeared to track centrally. The fat pad was quite abundant and some impingement was noted. I then extended down to the lateral medial gutter. No loose bodies were identified. I then entered the medial compartment. A medial portal arthrotomy was established. A blunt probe was inserted. There was found to be a degenerative radial tear of the posterior horn of the medial meniscus. There was a longitudinal split as well. Using a combination of biters and shaver, this was resected back to a stable remnant. The longitudinal split remained posteriorly; however, both the superior and inferior fragments appeared stable. The degenerative changes consistent with grade 3 chondromalacia were noted along the medial tibial plateau as well as the medial femoral condyle. I then entered the notch. Both the ACL and PCL were visualized and probed and found to be intact. I then entered the lateral compartment. Grade 2 degenerative changes were noted along the lateral tibial plateau with grade 1 chondromalacia along the lateral femoral condyle. The meniscus was extensively probed and found to be stable. I then re-entered the patellofemoral joint. A portion of the fat pad was resected for visualization. The patella showed an area of grade 3 chondromalacia along the central and inferior portion of the patella. The trochlea also showed diffuse grade 2 to grade 3 chondromalacia. Instruments were then removed from the knee. The portal sites were closed with 3-0 nylon. 1% Lidocaine was injected along the portal tracts. Xeroform gauze was placed over the wound, and a bulky dressing was applied. The tourniquet was then deflated. She was awakened from her anesthetic and transferred back to the operating room cart. She was brought to recovery room in stable condition. All needle and sponge counts were correct. HAROON / MAKAYLA /[id number]
== END 2017-04-04 13:04 | disposition home or self-care (01) ==
LOC: MW.SDS 07:49
PROVIDERS: ATTEND Orthopaedic Surgery
DX: S83.241A Other tear of medial meniscus, current injury, right knee, initial encounter (principal); M17.11 Unilateral primary osteoarthritis, right knee; M94.28 Chondromalacia, other site; F41.9 Anxiety disorder, unspecified; M94.262 Chondromalacia, left knee; K29.50 Unspecified chronic gastritis without bleeding; N95.1 Menopausal and female climacteric states; X58.XXXA Exposure to other specified factors, initial encounter; Z79.899 Other long term (current) drug therapy; Z98.51 Tubal ligation status; Z87.891 Personal history of nicotine dependence; Z87.442 Personal history of urinary calculi; Z88.5 Allergy status to narcotic agent
CPT/HCPCS: 29881; 81025; J0690; J1885; J2250; J2405; J3010; J7120; 01400; 88304; J2704

== ENCOUNTER 2017-06-11 00:42 | Day surgery (SDC) | payer BC ==
[2017-06-11] MEDS ORDERED: Sodium Chloride 0.9% 2.5 ML Syringe FLUSH PRN (00:44)
[2017-06-11] MEDS ORDERED: Sodium Chloride 0.9% 10 ML Syringe FLUSH PRN (00:44)
[2017-06-11] MEDS ORDERED: Sodium Chloride 0.9% 1,000 ML IV ONE (00:44)
[2017-06-11] MEDS ORDERED: Ondansetron 4 MG/2 ML SDV IVPUSH ONE ×2 (00:48→01:35)
[2017-06-11] MEDS ORDERED: Lidocaine 1% 20 ML MDV ONE ×2 (00:56→03:01)
[2017-06-11 01:17] LABS: CHLORIDE,CL 105 mmol/L (98-107); SODIUM,NA 142 mmol/L (136-145)
[2017-06-11] MEDS ORDERED: Sodium Chloride 0.9% 1,000 ML IV SCH (01:45)
[2017-06-11] MEDS ORDERED: Lactated Ringers 1,000 ML IV SCH ×2 (02:52→05:00)
--- NOTE | 2017-06-11 02:58 | PCM.CONS ---
H&P History of Present Illness - General Date of Service: 06/11/17 Admit Problem/Dx: Syncopal episode with a large forehead laceration Source of Information: Patient, Family History Limitations: Reports: No Limitations - History of Present Illness Initial Comments - Free Text/Narative: Patient is a 41-year-old female, who apparently had a syncopal episode at home. Her found her on the floor with a large forehead laceration. She was brought to the emergency room where she was seen by Dr. Awad. Workup has included a CT scan, which does not reveal any intracranial pathology. The laceration will require repair in the operating room. Onset of Symptoms: Reports: Today Location: Reports: Head, Face Severity: Severe Improves with: Reports: Rest Worsens with: Reports: Movement Associated Symptoms: Reports: Syncope. Denies: Confusion, Headaches Head Pain Score (Numeric/FACES): 10 - Related Data Allergies/Adverse Reactions: Allergies Allergy/AdvReac Type Severity Reaction Status Date / Time codeine Allergy Nausea Verified 06/11/17 00:53 Home Medications: Home Meds Lactobac Cmb #3/Fos/Pantethine [Probiotic & Acidophilus] 1 cap PO DAILY [History] QUEtiapine Fumarate [Seroquel] 100 mg PO BEDTIME 05/14/15 [History] cloNIDine HCl [Catapres] 0.1 mg PO BEDTIME 10/06/16 [History] Raspberry Ketone [Raspberry Ketones] 100 mg PO DAILY 04/01/17 [History] Past Medical History - Past Health History Medical/Surgical History: Denies Medical/Surgical History HEENT History: Reports: Other (See Below) Other HEENT History: wears glasses Cardiovascular History: Reports: None Respiratory History: Reports: None Gastrointestinal History: Reports: Other (See Below) Other Gastrointestinal History: hx gastric ulcer, occasional heartburn Genitourinary History: Reports: Renal Calculus, Other (See Below) Other Genitourinary History: history of kidney stones 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: Musculoskeletal History: Reports: Arthritis Neurological History: Reports: None Psychiatric History: Reports: Anxiety Endocrine/Metabolic History: Reports: None Hematologic History: Reports: None Immunologic History: Reports: None Oncologic (Cancer) History: Reports: None Dermatologic History: Reports: Psoriasis - Infectious Disease History Infectious Disease History: Reports: Chicken Pox - Past Surgical History Head Surgeries/Procedures: Reports: None HEENT Surgical History: Reports: Oral Surgery Other HEENT Surgeries/Procedures: wisdom teeth Cardiovascular Surgical History: Reports: None Respiratory Surgical History: Reports: None GI Surgical History: Reports: EGD Female Surgical History: Reports: LEEP, Tubal Ligation Endocrine Surgical History: Reports: None Neurological Surgical History: Reports: None Musculoskeletal Surgical History: Reports: Arthroscopic Knee, Other (See Below) Other Musculoskeletal Surgeries/Procedures:: bilateral knee arthroscopies, bilateral patella release Oncologic Surgical History: Reports: None Social & Family History - Family History Family Medical History: Noncontributory - Tobacco Use Smoking Status *Q: Former Smoker Years of Tobacco use: 15 Packs/Tins Daily: 0.5 Used Tobacco, but Quit: Yes Month/Year Tobacco Last Used: quit smoking 9 months ago Second Hand Smoke Exposure: No - Caffeine Use Caffeine Use: Reports: Coffee Caffeine Use Comment: 1 cup/day - Alcohol Use Days Per Week of Alcohol Use: 0 - Recreational Drug Use Recreational Drug Use: Yes Drug Use in Last 12 Months: Yes Recreational Drug Type: Reports: Marijuana/Hashish Recreational Drug Use Frequency: Weekly H&P Review of Systems - Review of Systems: Review Of Systems: See Below General: Denies: Fever, Chills HEENT: Reports: No Symptoms Pulmonary: Denies: Shortness of Breath, Wheezing Cardiovascular: Denies: Chest Pain, Palpitations Gastrointestinal: Reports: No Symptoms Genitourinary: Reports: No Symptoms Musculoskeletal: Reports: No Symptoms Skin: Reports: Wound (Large forehead laceration) Psychiatric: Reports: No Symptoms Neurological: Denies: Confusion, Dizziness, Headache, Change in Speech Hematologic/Lymphatic: Reports: No Symptoms Immunologic: Reports: No Symptoms Exam - Exam Exam: See Below - Vital Signs Vital Signs: Last Vital Signs Temp 98.7 F 06/11/17 02:37 Pulse 69 06/11/17 02:37 Resp 14 06/11/17 02:37 BP 124/81 06/11/17 02:37 Pulse Ox 97 06/11/17 02:37 Weight: 137 lb 9.095 oz - Exam General: Alert, Oriented, Cooperative, Moderate Distress. No: Sedated, Lethargic, Obtunded HEENT: Conjunctiva Clear, EACs Clear, EOMI, Pupils Equal, Pupils Reactive, Other (12+ cm forehead laceration that extends through the right eyebrow but doesn't appear to involve the eyelid.), PERRLA. No: Scleral Icterus Neck: Supple, Trachea Midline Lungs: Clear to Auscultation, Normal Respiratory Effort Cardiovascular: Regular Rate, Regular Rhythm, Normal S1, Normal S2. No: Systolic Murmur, Diastolic Murmur GI/Abdominal Exam: Normal Bowel Sounds, Soft, Non-Tender (Female) Exam: Deferred Rectal (Female) Exam: Deferred Back Exam: Normal Inspection Extremities: Normal Inspection Peripheral Pulses: 4+: Posterior Tibial (L), Posterior Tibial (R), Dorsalis Pedis (L), Dorsalis Pedis (R) Skin: Warm, Dry, Intact Neurological: Cranial Nerves Intact Neuro Extensive - Mental Status: Alert, Oriented x3, Normal Mood/Affect Psychiatric: Alert, Anxious - Patient Data Lab Results Last 24 hrs: Laboratory Results - last 24 hr 06/11/17 06/11/17 06/11/17 Range/Units 00:46 00:46 00:46 WBC 9.07 (4.0-11.0) K/uL RBC 4.76 (4.30-5.90) M/uL Hgb 14.1 (12.0-16.0) g/dL Hct 41.3 (36.0-46.0) % MCV 86.8 (80.0-98.0) fL MCH 29.6 (27.0-32.0) pg MCHC 34.1 (31.0-37.0) g/dL RDW Std Deviation 40.6 (28.0-62.0) fl RDW Coeff of Pallavi 13 (11.0-15.0) % Plt Count 229 (150-400) K/uL MPV 11.50 (7.40-12.00) fL Neut % (Auto) 41.5 L (48.0-80.0) % Lymph % (Auto) 49.1 H (16.0-40.0) % [place] % (Auto) 7.5 (0.0-15.0) % Eos % (Auto) 1.8 (0.0-7.0) % Baso % (Auto) 0.1 (0.0-1.5) % Neut # (Auto) 3.8 (1.4-5.7) K/uL Lymph # (Auto) 4.5 H (0.6-2.4) K/uL [place] # (Auto) 0.7 (0.0-0.8) K/uL Eos # (Auto) 0.2 (0.0-0.7) K/uL Baso # (Auto) 0.0 (0.0-0.1) K/uL INR 0.98 Sodium 142 (136-145) mmol/L Potassium 3.3 L (3.5-5.1) mmol/L Chloride 105 (98-107) mmol/L Carbon Dioxide 22.5 (21.0-32.0) mmol/L BUN 13 (7.0-18.0) mg/dL Creatinine 1.0 (0.6-1.0) mg/dL Est Cr Clr Drug Dosing 72.93 mL/min Estimated GFR (MDRD) > 60.0 ml/min Glucose 121 H (74-106) mg/dL Calcium 9.5 (8.5-10.1) mg/dL Total Bilirubin 0.1 L (0.2-1.0) mg/dL AST 13 L (15-37) IU/L ALT 16 (14-63) IU/L Alkaline Phosphatase 67 (46-116) U/L Total Protein 7.2 (6.4-8.2) g/dL Albumin 3.8 (3.4-5.0) g/dL Globulin 3.4 (2.0-3.5) g/dL Albumin/Globulin Ratio 1.1 L (1.3-2.8) HCG, Qual (NEG) Urine Color Urine Appearance Urine pH (5.0-8.0) Ur Specific [place] (1.001-1.035) Urine Protein (NEGATIVE) mg/dL Urine Glucose (UA) (NEGATIVE) mg/dL Urine Ketones (NEGATIVE) mg/dL Urine Occult Blood (NEGATIVE) Urine Nitrite (NEGATIVE) Urine Bilirubin (NEGATIVE) Urine Urobilinogen (<2.0) EU/dL Ur Leukocyte Esterase (NEGATIVE) Urine RBC (0-2/HPF) Urine WBC (0-5/HPF) Ur Epithelial Cells (NONE-FEW) Urine Bacteria (NEGATIVE) Urine Opiates Screen (NEGATIVE) Ur Oxycodone Screen (NEGATIVE) Urine Methadone Screen (NEGATIVE) Ur Barbiturates Screen (NEGATIVE) Ur Phencyclidine Scrn (NEGATIVE) Ur Amphetamine Screen (NEGATIVE) U Methamphetamines Scrn (NEGATIVE) U Benzodiazepines Scrn (NEGATIVE) U Cocaine Metab Screen (NEGATIVE) U Marijuana (THC) Screen (NEGATIVE) Ethyl Alcohol 12 mg/dL 06/11/17 06/11/17 06/11/17 Range/Units 02:37 02:37 02:37 WBC (4.0-11.0) K/uL RBC (4.30-5.90) M/uL Hgb (12.0-16.0) g/dL Hct (36.0-46.0) % MCV (80.0-98.0) fL MCH (27.0-32.0) pg MCHC (31.0-37.0) g/dL RDW Std Deviation (28.0-62.0) fl RDW Coeff of Pallavi (11.0-15.0) % Plt Count (150-400) K/uL MPV (7.40-12.00) fL Neut % (Auto) (48.0-80.0) % Lymph % (Auto) (16.0-40.0) % [place] % (Auto) (0.0-15.0) % Eos % (Auto) (0.0-7.0) % Baso % (Auto) (0.0-1.5) % Neut # (Auto) (1.4-5.7) K/uL Lymph # (Auto) (0.6-2.4) K/uL [place] # (Auto) (0.0-0.8) K/uL Eos # (Auto) (0.0-0.7) K/uL Baso # (Auto) (0.0-0.1) K/uL INR Sodium (136-145) mmol/L Potassium (3.5-5.1) mmol/L Chloride (98-107) mmol/L Carbon Dioxide (21.0-32.0) mmol/L BUN (7.0-18.0) mg/dL Creatinine (0.6-1.0) mg/dL Est Cr Clr Drug Dosing mL/min Estimated GFR (MDRD) ml/min Glucose (74-106) mg/dL Calcium (8.5-10.1) mg/dL Total Bilirubin (0.2-1.0) mg/dL AST (15-37) IU/L ALT (14-63) IU/L Alkaline Phosphatase (46-116) U/L Total Protein (6.4-8.2) g/dL Albumin (3.4-5.0) g/dL Globulin (2.0-3.5) g/dL Albumin/Globulin Ratio (1.3-2.8) HCG, Qual NEGATIVE (NEG) Urine Color YELLOW Urine Appearance CLEAR Urine pH 8.5 H (5.0-8.0) Ur Specific [place] 1.020 (1.001-1.035) Urine Protein TRACE (NEGATIVE) mg/dL Urine Glucose (UA) NEGATIVE (NEGATIVE) mg/dL Urine Ketones NEGATIVE (NEGATIVE) mg/dL Urine Occult Blood NEGATIVE (NEGATIVE) Urine Nitrite NEGATIVE (NEGATIVE) Urine Bilirubin NEGATIVE (NEGATIVE) Urine Urobilinogen 0.2 (<2.0) EU/dL Ur Leukocyte Esterase NEGATIVE (NEGATIVE) Urine RBC 1-2 (0-2/HPF) Urine WBC 1-2 (0-5/HPF) Ur Epithelial Cells MODERATE (NONE-FEW) Urine Bacteria 1+ H (NEGATIVE) Urine Opiates Screen NEGATIVE (NEGATIVE) Ur Oxycodone Screen NEGATIVE (NEGATIVE) Urine Methadone Screen NEGATIVE (NEGATIVE) Ur Barbiturates Screen NEGATIVE (NEGATIVE) Ur Phencyclidine Scrn NEGATIVE (NEGATIVE) Ur Amphetamine Screen NEGATIVE (NEGATIVE) U Methamphetamines Scrn NEGATIVE (NEGATIVE) U Benzodiazepines Scrn NEGATIVE (NEGATIVE) U Cocaine Metab Screen NEGATIVE (NEGATIVE) U Marijuana (THC) Screen POSITIVE (NEGATIVE) Ethyl Alcohol mg/dL Result Diagrams: 06/11/17 00:46 06/11/17 00:46 Consult PN Assessment/Plan Procedures: Procedures ASSAY OF FREE THYROXINE (05/16/17) ASSAY OF LIPASE (07/19/14) ASSAY THYROID STIM HORMONE (05/16/17) PRINCE DNA DIR PROBE (05/16/17) COMPLETE CBC AUTOMATED (05/16/17) COMPLETE CBC W/AUTO DIFF WBC (11/12/16) COMPREHEN METABOLIC PANEL (11/12/16) CONIZATION OF CERVIX (10/12/16) ECHO EXAM OF ABDOMEN (07/19/14) EGD BIOPSY SINGLE/MULTIPLE (07/29/14) ELECTRICAL STIMULATION (05/10/17) EMERGENCY DEPT VISIT (04/01/17) EMERGENCY DEPT VISIT (04/28/16) EMERGENCY DEPT VISIT (12/16/15) EMERGENCY DEPT VISIT (07/19/14) FREE ASSAY (FT-3) (05/16/17) QUAN VAG DNA DIR PROBE (05/16/17) HEPATOBIL SYST IMAGE W/DRUG (07/24/14) KNEE ARTHROSCOPY/SURGERY (04/04/17) KNEE ARTHROSCOPY/SURGERY (05/16/15) LIPID PANEL (11/12/16) MRI JNT OF LWR EXTRE W/O DYE (03/14/17) PT EVAL LOW COMPLEX 20 MIN (05/10/17) ROUTINE VENIPUNCTURE (11/12/16) THER/PROPH/DIAG INJ IV PUSH (12/16/15) THER/PROPH/DIAG INJ SC/IM (11/23/16) THERAPEUTIC EXERCISES (05/10/17) TISSUE EXAM BY PATHOLOGIST (08/16/16) TRICHOMONAS VAGIN DIR PROBE (05/16/17) TX/PRO/DX INJ NEW DRUG ADDON (12/16/15) URINALYSIS AUTO W/SCOPE (12/29/16) URINE TEST (04/04/17) X-RAY EXAM OF FOREARM (04/01/17) X-RAY EXAM OF KNEE 1 OR 2 (11/30/16) X-RAY EXAM OF KNEE 3 (11/23/16) X-RAY EXAM OF WRIST (04/01/17) (1) Forehead laceration SNOMED Code(s): 138808551 Code(s): S01.81XA - LACERATION W/O FOREIGN BODY OF OTH PART OF HEAD, INIT ENCNTR Priority: High Current Visit: Yes Qualifiers: Encounter type: initial encounter Qualified Code(s): S01.81XA - Laceration without foreign body of other part of head, initial encounter Problem List Initiated/Reviewed/Updated: Yes My Orders Last 24 Hours: My Active Orders 06/11/17 02:52 Oxygen Therapy [RC] PRN Vital Signs [RC] PER UNIT ROUTINE Lactated Ringers @ 125 MLS/HR(1000ml) Lactated Ringers [Ringers, Lactated] 1, 000 ml IV ASDIRECTED 06/11/17 Breakfast Nothing Per Oral Diet [DIET] Plan: Patient will require intraoperative evaluation with subsequent complicated repair of this 12+ centimeter laceration. The operative procedure, along with the risks including but not limited to bleeding, infection, reaction to medication, and subsequent scarring have been reviewed with the patient and her . They state they understand. They have had an opportunity to ask questions and have their questions answered. They state they understand and wish to proceed.
[2017-06-11] MEDS ORDERED: Sugammadex Sodium 200 MG/2 ML VIAL ONE (03:01)
[2017-06-11] MEDS ORDERED: ceFAZolin 1 GM Vial ONE (03:01)
[2017-06-11] MEDS ORDERED: Bupivacaine 0.5% 10 ML SDV ONE ×2 (03:01→03:02)
[2017-06-11] MEDS ORDERED: Propofol 200 MG/20 ML SDV ONE (03:02)
[2017-06-11] MEDS ORDERED: Midazolam 1 MG/ML 2 ML SDV ONE (03:03)
[2017-06-11] MEDS ORDERED: fentaNYL 100 MCG/2 ML SDV ONE ×2 (03:03→03:51)
[2017-06-11] MEDS ORDERED: Glycopyrrolate 0.2 MG/ML SDV ONE (03:12)
[2017-06-11] MEDS ORDERED: Succinylcholine 200 MG/10 ML MDV ONE (03:12)
[2017-06-11] MEDS ORDERED: Lidocaine 2% 5 ML SDV ONE (03:12)
[2017-06-11] MEDS ORDERED: Rocuronium 10 MG/ML 10 ML Syringe ONE (03:12)
[2017-06-11] MEDS ORDERED: Ketorolac 30 MG/ML SDV ONE (03:12)
[2017-06-11] MEDS ORDERED: Ondansetron 4 MG/2 ML SDV ONE (03:12)
[2017-06-11] MEDS ORDERED: Diphtheria,Pertussis(Acell),Tetanus Vaccine 0.5 ML Syringe IM ONE (03:23)
--- NOTE | 2017-06-11 03:24 | PCM.PREANE ---
Preanesthetic Assessment - Anesthesia/Transfusion/Family Hx Anesthesia History: Prior Anesthesia Without Reaction Family History of Anesthesia Reaction: No Transfusion History: No Prior Transfusion(s) Intubation History: Unknown - Review of Systems General: No Symptoms Pulmonary: No Symptoms Cardiovascular: No Symptoms Gastrointestinal: No Symptoms Neurological: No Symptoms Other: Reports: None - Physical Assessment NPO Status Date: 06/11/17 NPO Status Time: 01:00 O2 Sat by Pulse Oximetry: 97 Respiratory Rate: 14 Vital Signs: Last Vital Signs Temp 37.1 C 06/11/17 02:37 Pulse 69 06/11/17 02:37 Resp 14 06/11/17 02:37 BP 124/81 06/11/17 02:37 Pulse Ox 97 06/11/17 02:37 Height: 1.73 m Weight: 62.4 kg ASA Class: 1E Mental Status: Alert & Oriented x3 Dentition: Reports: Normal Dentition Lungs: Clear to Auscultation - Lab Values: Laboratory Last Values WBC 9.07 K/uL (4.0-11.0) 06/11/17 00:46 RBC 4.76 M/uL (4.30-5.90) 06/11/17 00:46 Hgb 14.1 g/dL (12.0-16.0) 06/11/17 00:46 Hct 41.3 % (36.0-46.0) 06/11/17 00:46 MCV 86.8 fL (80.0-98.0) 06/11/17 00:46 MCH 29.6 pg (27.0-32.0) 06/11/17 00:46 MCHC 34.1 g/dL (31.0-37.0) 06/11/17 00:46 RDW Std Deviation 40.6 fl (28.0-62.0) 06/11/17 00:46 RDW Coeff of Pallavi 13 % (11.0-15.0) 06/11/17 00:46 Plt Count 229 K/uL (150-400) 06/11/17 00:46 MPV 11.50 fL (7.40-12.00) 06/11/17 00:46 Neut % (Auto) 41.5 % (48.0-80.0) L 06/11/17 00:46 Lymph % (Auto) 49.1 % (16.0-40.0) H 06/11/17 00:46 [place] % (Auto) 7.5 % (0.0-15.0) 06/11/17 00:46 Eos % (Auto) 1.8 % (0.0-7.0) 06/11/17 00:46 Baso % (Auto) 0.1 % (0.0-1.5) 06/11/17 00:46 Neut # (Auto) 3.8 K/uL (1.4-5.7) 06/11/17 00:46 Lymph # (Auto) 4.5 K/uL (0.6-2.4) H 06/11/17 00:46 [place] # (Auto) 0.7 K/uL (0.0-0.8) 06/11/17 00:46 Eos # (Auto) 0.2 K/uL (0.0-0.7) 06/11/17 00:46 Baso # (Auto) 0.0 K/uL (0.0-0.1) 06/11/17 00:46 INR 0.98 06/11/17 00:46 Sodium 142 mmol/L (136-145) 06/11/17 00:46 Potassium 3.3 mmol/L (3.5-5.1) L 06/11/17 00:46 Chloride 105 mmol/L (98-107) 06/11/17 00:46 Carbon Dioxide 22.5 mmol/L (21.0-32.0) 06/11/17 00:46 BUN 13 mg/dL (7.0-18.0) 06/11/17 00:46 Creatinine 1.0 mg/dL (0.6-1.0) 06/11/17 00:46 Est Cr Clr Drug Dosing 72.93 mL/min 04 00:46 Estimated GFR (MDRD) > 60.0 ml/min 06/11/17 00:46 Glucose 121 mg/dL (74-106) H 06/11/17 00:46 Calcium 9.5 mg/dL (8.5-10.1) 06/11/17 00:46 Total Bilirubin 0.1 mg/dL (0.2-1.0) L 06/11/17 00:46 AST 13 IU/L (15-37) L 06/11/17 00:46 ALT 16 IU/L (14-63) 06/11/17 00:46 Alkaline Phosphatase 67 U/L (46-116) 06/11/17 00:46 Total Protein 7.2 g/dL (6.4-8.2) 06/11/17 00:46 Albumin 3.8 g/dL (3.4-5.0) 06/11/17 00:46 Globulin 3.4 g/dL (2.0-3.5) 06/11/17 00:46 Albumin/Globulin Ratio 1.1 (1.3-2.8) L 06/11/17 00:46 HCG, Qual NEGATIVE (NEG) 06/11/17 02:37 Urine Color YELLOW 06/11/17 02:37 Urine Appearance CLEAR 06/11/17 02:37 Urine pH 8.5 (5.0-8.0) H 06/11/17 02:37 Ur Specific Jenner 1.020 (1.001-1.035) 06/11/17 02:37 Urine Protein TRACE mg/dL (NEGATIVE) 06/11/17 02:37 Urine Glucose (UA) NEGATIVE mg/dL (NEGATIVE) 06/11/17 02:37 Urine Ketones NEGATIVE mg/dL (NEGATIVE) 06/11/17 02:37 Urine Occult Blood NEGATIVE (NEGATIVE) 06/11/17 02:37 Urine Nitrite NEGATIVE (NEGATIVE) 06/11/17 02:37 Urine Bilirubin NEGATIVE (NEGATIVE) 06/11/17 02:37 Urine Urobilinogen 0.2 EU/dL (<2.0) 06/11/17 02:37 Ur Leukocyte Esterase NEGATIVE (NEGATIVE) 06/11/17 02:37 Urine RBC 1-2 (0-2/HPF) 06/11/17 02:37 Urine WBC 1-2 (0-5/HPF) 06/11/17 02:37 Ur Epithelial Cells MODERATE (NONE-FEW) 06/11/17 02:37 Urine Bacteria 1+ (NEGATIVE) H 06/11/17 02:37 Urine Opiates Screen NEGATIVE (NEGATIVE) 06/11/17 02:37 Ur Oxycodone Screen NEGATIVE (NEGATIVE) 06/11/17 02:37 Urine Methadone Screen NEGATIVE (NEGATIVE) 06/11/17 02:37 Ur Barbiturates Screen NEGATIVE (NEGATIVE) 06/11/17 02:37 Ur Phencyclidine Scrn NEGATIVE (NEGATIVE) 06/11/17 02:37 Ur Amphetamine Screen NEGATIVE (NEGATIVE) 06/11/17 02:37 U Methamphetamines Scrn NEGATIVE (NEGATIVE) 06/11/17 02:37 U Benzodiazepines Scrn NEGATIVE (NEGATIVE) 06/11/17 02:37 U Cocaine Metab Screen NEGATIVE (NEGATIVE) 06/11/17 02:37 U Marijuana (THC) Screen POSITIVE (NEGATIVE) 06/11/17 02:37 Ethyl Alcohol 12 mg/dL 06/11/17 00:46 - Allergies Allergies/Adverse Reactions: Allergies Allergy/AdvReac Type Severity Reaction Status Date / Time codeine Allergy Nausea Verified 06/11/17 00:53 - Acknowledgements Anesthesia Type Planned: General Anesthesia Pt an Appropriate Candidate for the Planned Anesthesia: Yes Alternatives and Risks of Anesthesia Discussed w Pt/Guardian: Yes Pt/Guardian Understands and Agrees with Anesthesia Plan: Yes PreAnesthesia Questionnaire - Past Health History Medical/Surgical History: Denies Medical/Surgical History HEENT History: Reports: Other (See Below) Other HEENT History: wears glasses Cardiovascular History: Reports: None Respiratory History: Reports: None Gastrointestinal History: Reports: Other (See Below) Other Gastrointestinal History: hx gastric ulcer, occasional heartburn Genitourinary History: Reports: Renal Calculus, Other (See Below) Other Genitourinary History: history of kidney stones [employer]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: Musculoskeletal History: Reports: Arthritis Neurological History: Reports: None Psychiatric History: Reports: Anxiety Endocrine/Metabolic History: Reports: None Hematologic History: Reports: None Immunologic History: Reports: None Oncologic (Cancer) History: Reports: None Dermatologic History: Reports: Psoriasis - Infectious Disease History Infectious Disease History: Reports: Chicken Pox - Past Surgical History Head Surgeries/Procedures: Reports: None HEENT Surgical History: Reports: Oral Surgery Other HEENT Surgeries/Procedures: wisdom teeth Cardiovascular Surgical History: Reports: None Respiratory Surgical History: Reports: None GI Surgical History: Reports: EGD Female Surgical History: Reports: LEEP, Tubal Ligation Endocrine Surgical History: Reports: None Neurological Surgical History: Reports: None Musculoskeletal Surgical History: Reports: Arthroscopic Knee, Other (See Below) Other Musculoskeletal Surgeries/Procedures:: bilateral knee arthroscopies, bilateral patella release Oncologic Surgical History: Reports: None - SUBSTANCE USE Smoking Status *Q: Former Smoker Tobacco Use Within Last Twelve Months: No Second Hand Smoke Exposure: No Days Per Week of Alcohol Use: 0 Recreational Drug Use History: Yes Recreational Drug Type: Reports: Marijuana/Hashish - HOME MEDS Home Medications: Home Meds Lactobac Cmb #3/Fos/Pantethine [Probiotic & Acidophilus] 1 cap PO DAILY [History] QUEtiapine Fumarate [Seroquel] 100 mg PO BEDTIME 05/14/15 [History] cloNIDine HCl [Catapres] 0.1 mg PO BEDTIME 10/06/16 [History] Raspberry Ketone [Raspberry Ketones] 100 mg PO DAILY 04/01/17 [History] - CURRENT (IN HOUSE) MEDS Current Meds: Current Medications Sodium Chloride (Normal Saline) 1,000 mls @ 125 mls/hr IV ASDIRECTED CHEKO Last Admin: 06/11/17 01:43 Dose: 125 mls/hr Lactated Ringer's (Ringers, Lactated) 1,000 mls @ 125 mls/hr IV ASDIRECTED [facility] Sodium Chloride (Saline Flush) 10 ml FLUSH ASDIRECTED PRN PRN Reason: Keep Vein Open Last Admin: 06/11/17 01:01 Dose: 10 ml Sodium Chloride (Saline Flush) 2.5 ml FLUSH ASDIRECTED PRN PRN Reason: Keep Vein Open Last Admin: 06/11/17 01:01 Dose: 2.5 ml Discontinued Medications Bupivacaine HCl (Sensorcaine-Mpf 0.5%) Confirm Administered Dose 20 ml .ROUTE .STK-MED ONE Stop: 06/11/17 03:02 Bupivacaine HCl (Sensorcaine-Mpf 0.5%) Confirm Administered Dose 10 ml .ROUTE .STK-MED ONE Stop: 06/11/17 03:03 Cefazolin Sodium (Ancef) Confirm Administered Dose 1 gm .ROUTE .STK-MED ONE Stop: 06/11/17 03:02 Fentanyl (Sublimaze) Confirm Administered Dose 100 mcg .ROUTE .STK-MED ONE Stop: 06/11/17 03:04 Glycopyrrolate (Robinul) Confirm Administered Dose 0.2 mg .ROUTE .STK-MED ONE Stop: 06/11/17 03:13 Sodium Chloride (Normal Saline) 1,000 mls @ 999 mls/hr IV STAT ONE Stop: 06/11/17 01:44 Last Admin: 06/11/17 01:01 Dose: 999 mls/hr Ketorolac Tromethamine (Toradol) Confirm Administered Dose 30 mg .ROUTE .STK- MED ONE Stop: 06/11/17 03:13 Lidocaine (Xylocaine-Mpf 2%) Confirm Administered Dose 5 ml .ROUTE .STK-MED ONE Stop: 06/11/17 03:13 Lidocaine HCl (Xylocaine 1%) Confirm Administered Dose 20 ml .ROUTE .STK-MED ONE Stop: 06/11/17 00:57 Last Admin: 06/11/17 01:01 Dose: 20 ml Lidocaine HCl (Xylocaine 1%) Confirm Administered Dose 20 ml .ROUTE .STK-MED ONE Stop: 06/11/17 03:02 Midazolam HCl (Versed 1 Mg/Ml) Confirm Administered Dose 2 mg .ROUTE .STK-MED ONE Stop: 06/11/17 03:04 Ondansetron HCl (Zofran) 4 mg IVPUSH ONETIME ONE Stop: 06/11/17 00:49 Last Admin: 06/11/17 01:00 Dose: 4 mg Ondansetron HCl (Zofran) 4 mg IVPUSH ONETIME ONE Stop: 06/11/17 01:36 Last Admin: 06/11/17 01:44 Dose: 4 mg Ondansetron HCl (Zofran) Confirm Administered Dose 4 mg .ROUTE .STK-MED ONE Stop: 06/11/17 03:13 Propofol (Diprivan 20 Ml) Confirm Administered Dose 200 mg .ROUTE .STK-MED ONE Stop: 06/11/17 03:03 Rocuronium [place] (Zemuron) Confirm Administered Dose 100 mg .ROUTE .STK-MED ONE Stop: 06/11/17 03:13 Succinylcholine Chloride (Quelicin) Confirm Administered Dose 200 mg .ROUTE .STK -MED ONE Stop: 06/11/17 03:13
--- NOTE | 2017-06-11 03:25 | EDM.PDOC ---
ED HPI GENERAL MEDICAL PROBLEM - General Chief Complaint: Head Injury Stated Complaint: PATIENT FELL Time Seen by Provider: 06/11/17 00:43 Source of Information: Reports: Patient, Family History Limitations: Reports: No Limitations - History of Present Illness INITIAL COMMENTS - FREE TEXT/NARRATIVE: HISTORY AND PHYSICAL: History of present illness: Patient 41-year-old white female presents status post fall which he sustained a laceration of her face she is amnestic of the event she denies of a tetanus denies chest pain palpitations shortness of breath or other concern. Review of systems: As per history of present illness and below otherwise all systems reviewed and negative. Past medical history: As per history of present illness and as reviewed below otherwise noncontributory. Surgical history: As per history of present illness and as reviewed below otherwise noncontributory. Social history: No reported history of drug or alcohol abuse. Family history: As per history of present illness and as reviewed below otherwise noncontributory. Physical exam: HEENT: Patient has a approximate 10 cm full-thickness laceration of her right forehead extending to her right eyebrow. No step-off or depression is good hemostasis, normocephalic, pupils reactive, negative for conjunctival pallor or scleral icterus, mucous membranes moist, throat clear, neck supple, nontender, trachea midline. Lungs: Clear to auscultation, breath sounds equal bilaterally, chest nontender. Heart: S1S2, regular, negative for clicks, rubs, or JVD. Abdomen: Soft, nondistended, nontender. Negative for masses or hepatosplenomegaly. Negative for costovertebral tenderness. Pelvis: Stable nontender. Genitourinary: Deferred. Rectal: Deferred. Extremities: Atraumatic, negative for cords or calf pain. Neurovascular unremarkable. Neuro: Awake, alert, oriented. Cranial nerves II through XII unremarkable. Cerebellum unremarkable. Motor and sensory unremarkable throughout. Exam nonfocal. Diagnostics: CBC CMP PT/INR troponin chest x-ray CT brain maxillofacial bones cervical spine Therapeutics: IV O2 monitor tetanus Impression: #1 observation status post fall with facial laceration #2 cerebral concussion Definitive disposition and diagnosis as appropriate pending reevaluation and review of above. Onset: Today Location: Reports: Head, Face Severity: Severe Improves with: Reports: Rest Worsens with: Reports: Movement Associated Symptoms: Reports: Syncope. Denies: Confusion, Headaches Head Pain Score (Numeric/FACES): 10 - Related Data Allergies Allergy/AdvReac Type Severity Reaction Status Date / Time codeine Allergy Nausea Verified 06/11/17 00:53 Home Meds: Home Meds Lactobac Cmb #3/Fos/Pantethine [Probiotic & Acidophilus] 1 cap PO DAILY [History] QUEtiapine Fumarate [Seroquel] 100 mg PO BEDTIME 05/14/15 [History] cloNIDine HCl [Catapres] 0.1 mg PO BEDTIME 10/06/16 [History] Raspberry Ketone [Raspberry Ketones] 100 mg PO DAILY 04/01/17 [History] Past Medical History - Past Health History Medical/Surgical History: Denies Medical/Surgical History HEENT History: Reports: Other (See Below) Other HEENT History: wears glasses Cardiovascular History: Reports: None Respiratory History: Reports: None Gastrointestinal History: Reports: Other (See Below) Other Gastrointestinal History: hx gastric ulcer, occasional heartburn Genitourinary History: Reports: Renal Calculus, Other (See Below) Other Genitourinary History: history of kidney stones [employer]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: Musculoskeletal History: Reports: Arthritis Neurological History: Reports: None Psychiatric History: Reports: Anxiety Endocrine/Metabolic History: Reports: None Hematologic History: Reports: None Immunologic History: Reports: None Oncologic (Cancer) History: Reports: None Dermatologic History: Reports: Psoriasis - Infectious Disease History Infectious Disease History: Reports: Chicken Pox - Past Surgical History Head Surgeries/Procedures: Reports: None HEENT Surgical History: Reports: Oral Surgery Other HEENT Surgeries/Procedures: wisdom teeth Cardiovascular Surgical History: Reports: None Respiratory Surgical History: Reports: None GI Surgical History: Reports: EGD Female Surgical History: Reports: LEEP, Tubal Ligation Endocrine Surgical History: Reports: None Neurological Surgical History: Reports: None Musculoskeletal Surgical History: Reports: Arthroscopic Knee, Other (See Below) Other Musculoskeletal Surgeries/Procedures:: bilateral knee arthroscopies, bilateral patella release Oncologic Surgical History: Reports: None Social & Family History - Family History Family Medical History: Noncontributory - Tobacco Use Smoking Status *Q: Former Smoker Years of Tobacco use: 15 Packs/Tins Daily: 0.5 Used Tobacco, but Quit: Yes Month/Year Tobacco Last Used: quit smoking 9 months ago Second Hand Smoke Exposure: No - Caffeine Use Caffeine Use: Reports: Coffee Caffeine Use Comment: 1 cup/day - Alcohol Use Days Per Week of Alcohol Use: 0 - Recreational Drug Use Recreational Drug Use: Yes Drug Use in Last 12 Months: Yes Recreational Drug Type: Reports: Marijuana/Hashish Recreational Drug Use Frequency: Weekly ED ROS GENERAL - Review of Systems Review Of Systems: ROS reveals no pertinent complaints other than HPI. ED EXAM, GENERAL - Physical Exam Exam: See Below (See dictation) Peripheral Pulses: 4+: Posterior Tibial (L), Posterior Tibial (R), Dorsalis Pedis (L), Dorsalis Pedis (R) GI/Abdominal: Normal Bowel Sounds, Soft, Non-Tender Back Exam: Normal Inspection Extremities: Normal Inspection Course - Vital Signs Text/Narrative:: Gen. surgery was consulted Dr. Will was kind enough to evaluate patient ED will take her to the operating room for treatment of facial laceration Last Recorded V/S: Last Vital Signs Temp 37.1 C 06/11/17 02:37 Pulse 69 06/11/17 02:37 Resp 14 06/11/17 02:37 BP 124/81 06/11/17 02:37 Pulse Ox 97 06/11/17 02:37 - Orders/Labs/Meds Orders: Active Orders 24 hr Category Date Time Status Cardiac Monitoring [RC] . DIRECTED Care 06/11/17 00:43 Active EKG Documentation Completion [RC] STAT Care 06/11/17 00:43 Active Oxygen Therapy [RC] PRN Care 06/11/17 02:52 Active Oxygen Therapy, ED [RC] ASDIRECTED Care 06/11/17 00:43 Active Pulse Oximetry [RC] ASDIRECTED Care 06/11/17 00:43 Active Vital Signs [RC] PER UNIT ROUTINE Care 06/11/17 02:52 Active Nothing Per Oral Diet [DIET] Diet 06/11/17 Breakfast Active Cervical Spine wo Cont [CT] Stat Exams 06/11/17 00:44 Taken Head wo Cont [CT] Stat Exams 06/11/17 00:44 Taken Max Facial Sinus wo Cont [CT] Stat Exams 06/11/17 00:53 Taken DRUG SCREEN, URINE [URCHEM] Stat Lab 06/11/17 02:37 Ordered UA W/MICROSCOPIC [URIN] Stat Lab 06/11/17 02:37 Ordered Lactated Ringers [Ringers, Lactated] 1,000 ml Med 06/11/17 02:52 Active IV ASDIRECTED Sodium Chloride 0.9% [Normal Saline] 1,000 ml Med 06/11/17 01:45 Active IV ASDIRECTED Sodium Chloride 0.9% [Saline Flush] Med 06/11/17 00:44 Active 10 ml FLUSH ASDIRECTED PRN Sodium Chloride 0.9% [Saline Flush] Med 06/11/17 00:44 Active 2.5 ml FLUSH ASDIRECTED PRN Saline Lock Insert [OM.PC] Stat Oth 06/11/17 00:43 Ordered Medication Orders Sodium Chloride (Normal Saline) 1,000 mls @ 125 mls/hr IV ASDIRECTED CHEKO Last Admin: 06/11/17 01:43 Dose: 125 mls/hr Lactated Ringer's (Ringers, Lactated) 1,000 mls @ 125 mls/hr IV ASDIRECTED CHEKO Sodium Chloride (Saline Flush) 10 ml FLUSH ASDIRECTED PRN PRN Reason: Keep Vein Open Last Admin: 06/11/17 01:01 Dose: 10 ml Sodium Chloride (Saline Flush) 2.5 ml FLUSH ASDIRECTED PRN PRN Reason: Keep Vein Open Last Admin: 06/11/17 01:01 Dose: 2.5 ml Labs: Laboratory Tests 06/11/17 06/11/17 06/11/17 Range/Units 00:46 00:46 00:46 WBC 9.07 (4.0-11.0) K/uL RBC 4.76 (4.30-5.90) M/uL Hgb 14.1 (12.0-16.0) g/dL Hct 41.3 (36.0-46.0) % MCV 86.8 (80.0-98.0) fL MCH 29.6 (27.0-32.0) pg MCHC 34.1 (31.0-37.0) g/dL RDW Std Deviation 40.6 (28.0-62.0) fl RDW Coeff of Pallavi 13 (11.0-15.0) % Plt Count 229 (150-400) K/uL MPV 11.50 (7.40-12.00) fL Neut % (Auto) 41.5 L (48.0-80.0) % Lymph % (Auto) 49.1 H (16.0-40.0) % [place] % (Auto) 7.5 (0.0-15.0) % Eos % (Auto) 1.8 (0.0-7.0) % Baso % (Auto) 0.1 (0.0-1.5) % Neut # (Auto) 3.8 (1.4-5.7) K/uL Lymph # (Auto) 4.5 H (0.6-2.4) K/uL [place] # (Auto) 0.7 (0.0-0.8) K/uL Eos # (Auto) 0.2 (0.0-0.7) K/uL Baso # (Auto) 0.0 (0.0-0.1) K/uL INR 0.98 Sodium 142 (136-145) mmol/L Potassium 3.3 L (3.5-5.1) mmol/L Chloride 105 (98-107) mmol/L Carbon Dioxide 22.5 (21.0-32.0) mmol/L BUN 13 (7.0-18.0) mg/dL Creatinine 1.0 (0.6-1.0) mg/dL Est Cr Clr Drug Dosing 72.93 mL/min Estimated GFR (MDRD) > 60.0 ml/min Glucose 121 H (74-106) mg/dL Calcium 9.5 (8.5-10.1) mg/dL Total Bilirubin 0.1 L (0.2-1.0) mg/dL AST 13 L (15-37) IU/L ALT 16 (14-63) IU/L Alkaline Phosphatase 67 (46-116) U/L Total Protein 7.2 (6.4-8.2) g/dL Albumin 3.8 (3.4-5.0) g/dL Globulin 3.4 (2.0-3.5) g/dL Albumin/Globulin Ratio 1.1 L (1.3-2.8) HCG, Qual (NEG) Urine Color Urine Appearance Urine pH (5.0-8.0) Ur Specific [place] (1.001-1.035) Urine Protein (NEGATIVE) mg/dL Urine Glucose (UA) (NEGATIVE) mg/dL Urine Ketones (NEGATIVE) mg/dL Urine Occult Blood (NEGATIVE) Urine Nitrite (NEGATIVE) Urine Bilirubin (NEGATIVE) Urine Urobilinogen (<2.0) EU/dL Ur Leukocyte Esterase (NEGATIVE) Urine RBC (0-2/HPF) Urine WBC (0-5/HPF) Ur Epithelial Cells (NONE-FEW) Urine Bacteria (NEGATIVE) Urine Opiates Screen (NEGATIVE) Ur Oxycodone Screen (NEGATIVE) Urine Methadone Screen (NEGATIVE) Ur Barbiturates Screen (NEGATIVE) Ur Phencyclidine Scrn (NEGATIVE) Ur Amphetamine Screen (NEGATIVE) U Methamphetamines Scrn (NEGATIVE) U Benzodiazepines Scrn (NEGATIVE) U Cocaine Metab Screen (NEGATIVE) U Marijuana (THC) Screen (NEGATIVE) Ethyl Alcohol 12 mg/dL 06/11/17 06/11/17 06/11/17 Range/Units 02:37 02:37 02:37 WBC (4.0-11.0) K/uL RBC (4.30-5.90) M/uL Hgb (12.0-16.0) g/dL Hct (36.0-46.0) % MCV (80.0-98.0) fL MCH (27.0-32.0) pg MCHC (31.0-37.0) g/dL RDW Std Deviation (28.0-62.0) fl RDW Coeff of Pallavi (11.0-15.0) % Plt Count (150-400) K/uL MPV (7.40-12.00) fL Neut % (Auto) (48.0-80.0) % Lymph % (Auto) (16.0-40.0) % [place] % (Auto) (0.0-15.0) % Eos % (Auto) (0.0-7.0) % Baso % (Auto) (0.0-1.5) % Neut # (Auto) (1.4-5.7) K/uL Lymph # (Auto) (0.6-2.4) K/uL [place] # (Auto) (0.0-0.8) K/uL Eos # (Auto) (0.0-0.7) K/uL Baso # (Auto) (0.0-0.1) K/uL INR Sodium (136-145) mmol/L Potassium (3.5-5.1) mmol/L Chloride (98-107) mmol/L Carbon Dioxide (21.0-32.0) mmol/L BUN (7.0-18.0) mg/dL Creatinine (0.6-1.0) mg/dL Est Cr Clr Drug Dosing mL/min Estimated GFR (MDRD) ml/min Glucose (74-106) mg/dL Calcium (8.5-10.1) mg/dL Total Bilirubin (0.2-1.0) mg/dL AST (15-37) IU/L ALT (14-63) IU/L Alkaline Phosphatase (46-116) U/L Total Protein (6.4-8.2) g/dL Albumin (3.4-5.0) g/dL Globulin (2.0-3.5) g/dL Albumin/Globulin Ratio (1.3-2.8) HCG, Qual NEGATIVE (NEG) Urine Color YELLOW Urine Appearance CLEAR Urine pH 8.5 H (5.0-8.0) Ur Specific [place] 1.020 (1.001-1.035) Urine Protein TRACE (NEGATIVE) mg/dL Urine Glucose (UA) NEGATIVE (NEGATIVE) mg/dL Urine Ketones NEGATIVE (NEGATIVE) mg/dL Urine Occult Blood NEGATIVE (NEGATIVE) Urine Nitrite NEGATIVE (NEGATIVE) Urine Bilirubin NEGATIVE (NEGATIVE) Urine Urobilinogen 0.2 (<2.0) EU/dL Ur Leukocyte Esterase NEGATIVE (NEGATIVE) Urine RBC 1-2 (0-2/HPF) Urine WBC 1-2 (0-5/HPF) Ur Epithelial Cells MODERATE (NONE-FEW) Urine Bacteria 1+ H (NEGATIVE) Urine Opiates Screen NEGATIVE (NEGATIVE) Ur Oxycodone Screen NEGATIVE (NEGATIVE) Urine Methadone Screen NEGATIVE (NEGATIVE) Ur Barbiturates Screen NEGATIVE (NEGATIVE) Ur Phencyclidine Scrn NEGATIVE (NEGATIVE) Ur Amphetamine Screen NEGATIVE (NEGATIVE) U Methamphetamines Scrn NEGATIVE (NEGATIVE) U Benzodiazepines Scrn NEGATIVE (NEGATIVE) U Cocaine Metab Screen NEGATIVE (NEGATIVE) U Marijuana (THC) Screen POSITIVE (NEGATIVE) Ethyl Alcohol mg/dL Meds: Medications Generic Name Dose Route Start Last Admin Trade Name Freq PRN Reason Stop Dose Admin Sodium Chloride 1,000 mls @ 125 mls/hr 06/11/17 01:45 06/11/17 01:43 Normal Saline IV 125 mls/hr ASDIRECTED CHEKO Administration Lactated Ringer's 1,000 mls @ 125 mls/hr 04/28/18 02:52 Ringers, Lactated IV ASDIRECTED CHEKO Sodium Chloride 10 ml 06/11/17 00:44 06/11/17 01:01 Saline Flush FLUSH 10 ml ASDIRECTED PRN Administration Keep Vein Open Sodium Chloride 2.5 ml 06/11/17 00:44 06/11/17 01:01 Saline Flush FLUSH 2.5 ml ASDIRECTED PRN Administration Keep Vein Open Discontinued Medications Generic Name Dose Route Start Last Admin Trade Name Xander PRN Reason Stop Dose Admin Bupivacaine HCl Confirm 06/11/17 03:01 Sensorcaine-Mpf 0.5% Administered 06/11/17 03:02 Dose 20 ml .ROUTE .STK-MED ONE Bupivacaine HCl Confirm 06/11/17 03:02 Sensorcaine-Mpf 0.5% Administered 06/11/17 03:03 Dose 10 ml .ROUTE .STK-MED ONE Cefazolin Sodium Confirm 06/11/17 03:01 Ancef Administered 06/11/17 03:02 Dose 1 gm .ROUTE .STK-MED ONE Fentanyl Confirm 06/11/17 03:03 Sublimaze Administered 06/11/17 03:04 Dose 100 mcg .ROUTE .STK-MED ONE Glycopyrrolate Confirm 06/11/17 03:12 Robinul Administered 06/11/17 03:13 Dose 0.2 mg .ROUTE .STK-MED ONE Sodium Chloride 1,000 mls @ 999 mls/hr 06/11/17 00:44 06/11/17 01:01 Normal Saline IV 06/11/17 01:44 999 mls/hr STAT ONE Administration Ketorolac Tromethamine Confirm 06/11/17 03:12 Toradol Administered 06/11/17 03:13 Dose 30 mg .ROUTE .STK-MED ONE Lidocaine Confirm 06/11/17 03:12 Xylocaine-Mpf 2% Administered 06/11/17 03:13 Dose 5 ml .ROUTE .STK-MED ONE Lidocaine HCl Confirm 06/11/17 00:56 06/11/17 01:01 Xylocaine 1% Administered 06/11/17 00:57 20 ml Dose Administration 20 ml .ROUTE .STK-MED ONE Lidocaine HCl Confirm 06/11/17 03:01 Xylocaine 1% Administered 06/11/17 03:02 Dose 20 ml .ROUTE .STK-MED ONE Midazolam HCl Confirm 06/11/17 03:03 Versed 1 Mg/Ml Administered 06/11/17 03:04 Dose 2 mg .ROUTE .STK-MED ONE Ondansetron HCl 4 mg 06/11/17 00:48 06/11/17 01:00 Zofran IVPUSH 06/11/17 00:49 4 mg ONETIME ONE Administration Ondansetron HCl 4 mg 06/11/17 01:35 06/11/17 01:44 Zofran IVPUSH 06/11/17 01:36 4 mg ONETIME ONE Administration Ondansetron HCl Confirm 06/11/17 03:12 Zofran Administered 06/11/17 03:13 Dose 4 mg .ROUTE .STK-MED ONE Propofol Confirm 06/11/17 03:02 Diprivan 20 Ml Administered 06/11/17 03:03 Dose 200 mg .ROUTE .STK-MED ONE Rocuronium [place] Confirm 06/11/17 03:12 Zemuron Administered 06/11/17 03:13 Dose 100 mg .ROUTE .STK-MED ONE Succinylcholine Chloride Confirm 06/11/17 03:12 Quelicin Administered 06/11/17 03:13 Dose 200 mg .ROUTE .STK-MED ONE Departure - Departure Time of Disposition: 03:23 Disposition: Still A Patient 30 Condition: Good Clinical Impression: Facial laceration, Cerebral concussion - Discharge Information - My Orders Last 24 Hours: My Active Orders 06/11/17 00:43 Cardiac Monitoring [RC] . DIRECTED EKG Documentation Completion [RC] STAT Oxygen Therapy, ED [RC] ASDIRECTED Pulse Oximetry [RC] ASDIRECTED Saline Lock Insert [OM.PC] Stat 06/11/17 00:44 Cervical Spine wo Cont [CT] Stat Head wo Cont [CT] Stat Sodium Chloride 0.9% [Saline Flush] 10 ml FLUSH ASDIRECTED PRN Sodium Chloride 0.9% [Saline Flush] 2.5 ml FLUSH ASDIRECTED PRN 06/11/17 00:53 Max Facial Sinus wo Cont [CT] Stat 06/11/17 01:45 Sodium Chloride 0.9% [Normal Saline] 1,000 ml IV ASDIRECTED 06/11/17 02:37 DRUG SCREEN, URINE [URCHEM] Stat UA W/MICROSCOPIC [URIN] Stat - Assessment/Plan Last 24 Hours: My Active Orders 06/11/17 00:43 Cardiac Monitoring [RC] . DIRECTED EKG Documentation Completion [RC] STAT Oxygen Therapy, ED [RC] ASDIRECTED Pulse Oximetry [RC] ASDIRECTED Saline Lock Insert [OM.PC] Stat 06/11/17 00:44 Cervical Spine wo Cont [CT] Stat Head wo Cont [CT] Stat Sodium Chloride 0.9% [Saline Flush] 10 ml FLUSH ASDIRECTED PRN Sodium Chloride 0.9% [Saline Flush] 2.5 ml FLUSH ASDIRECTED PRN 06/11/17 00:53 Max Facial Sinus wo Cont [CT] Stat 06/11/17 01:45 Sodium Chloride 0.9% [Normal Saline] 1,000 ml IV ASDIRECTED 06/11/17 02:37 DRUG SCREEN, URINE [URCHEM] Stat UA W/MICROSCOPIC [URIN] Stat
--- NOTE | 2017-06-11 04:51 | PCM.OPNOTE ---
- General Post-Op/Procedure Note Date of Surgery/Procedure: 06/11/17 Operative Procedure(s): Repair complex 12 cm, forehead and right upper eyelid laceration with multilayered closure Pre Op Diagnosis: Traumatic complex forehead laceration with flap Post-Op Diagnosis: Same Anesthesia Technique: General ET Tube (ASA IIE) Primary Surgeon: Nj Will Wicker Molded Candles: Jacques Zaldivar Fluid Replacement, Intraop: 300 EBL in mLs: 10 Condition: Fair Free Text/Narrative:: Dictation [id number]
[2017-06-11] MEDS ORDERED: traMADol 50 MG Tab PO PRN (04:54)
[2017-06-11] MEDS ORDERED: Morphine 10 MG/ML Syringe IVPUSH PRN (04:54)
[2017-06-11] MEDS ORDERED: Acetaminophen 325 MG Tab PO PRN (04:54)
[2017-06-11] MEDS ORDERED: Ondansetron 4 MG/2 ML SDV IVPUSH PRN (04:54)
--- NOTE | 2017-06-11 05:16 | PCM.POSTAN ---
POST ANESTHESIA ASSESSMENT - RESPIRATORY Respiratory Status: Respiratory Rate WNL - CARDIOVASCULAR CV Status: Pulse Rate WNL - GASTROINTESTINAL GI Status: No Symptoms - POST OP HYDRATION Hydration Status: Adequate & Stable
--- NOTE | 2017-06-11 06:07 | PCM48HPAN ---
Post Anesthesia Note - EVALUATION WITHIN 48HRS OF ANESTHETIC Vital Signs in Normal Range: Yes Patient Participated in Evaluation: Yes Respiratory Function Stable: Yes Airway Patent: Yes Cardiovascular Function Stable: Yes Hydration Status Stable: Yes Pain Control Satisfactory: Yes Nausea and Vomiting Control Satisfactory: Yes Mental Status Recovered: Yes Resp Rate: 16
[2017-06-11 06:09] VITALS: BP 113/77
--- NOTE | 2017-06-11 10:10 | OR ---
SURGEON: Nj Will M.D. DATE OF PROCEDURE: 06/11/2017 OPERATION PERFORMED: Repair of complex forehead laceration with multilayered closure. Laceration length was 12 cm. CASH REGISTER SERVICER: DADA Zaldivar. ANESTHESIA: General endotracheal. [employer] CLASSIFICATION: IIE. INTRAOPERATIVE FLUIDS: 300 mL of crystalloid. ESTIMATED BLOOD LOSS: 10 mL. DESCRIPTION OF PROCEDURE: The patient was taken to the operating room and placed on the operating table in the supine position. A time-out was called for appropriate identification of the patient and procedure. Following satisfactory attainment of general endotracheal anesthesia, the forehead laceration was cleansed with Betadine solution. Sterile drapes were applied. This was a large flap-type laceration. The flap was raised, and the wound was irrigated with sterile saline solution. Minimal debridement was necessary. The wound edges came together nicely. The incision was then closed in two layers with a running 3-0 and running 4-0 STRATAFIX in the subcutaneous layer, followed by cutaneous closure of running locked 5-0 nylon. The wounds were then cleansed, and the incision was dressed with antibiotic ointment. The patient tolerated the procedure well. Following emergence from anesthesia and extubation, she was taken to the recovery room in stable condition. YAAKOV / MAKAYLA /[id number]
--- NOTE | 2017-06-13 13:17 | CT ---
EXAM DATE: 06/11/17 PATIENT'S AGE: 41 Patient: ABELARDO TATUM Facility: [place], [place] Site . Site : 1975 Study: CT Head [id number]/28/2018 1:32:33 AM Ordering Physician: Delmi Montalvo Final Report: INDICATION: Fell on face. Large vertical gash on forehead. TECHNIQUE: CT head without i.v. contrast. COMPARISON: None FINDINGS: CSF spaces: Within normal limits for age. Brain parenchyma: The brain parenchyma is normal in appearance with preservation of the serrano-white differentiation. No sign of mass, hemorrhage, or midline shift seen. Skull base and calvarium: The visualized paranasal sinuses are well aerated. The mastoid air cells are clear. The visualized orbits are grossly unremarkable. No skull fractures are seen. Right frontal soft tissue injury with likely laceration injury, series 202 image 65. IMPRESSION: 1. No fracture or acute intracranial hemorrhage. Right frontal extracalvarial soft tissue injury. Dictated by Tj Olsen MD @ 06/11/2017 1:44:01 AM Please note that all CT scans at this facility use dose modulation, iterative reconstruction, and/or weight-based dosing when appropriate to reduce radiation dose to as low as reasonably achievable. Dictated by: Tj Olsen MD @ 06/11/2017 01:44:09 (Electronic Signature) Report Signed by Proxy. [facility]
--- NOTE | 2017-06-13 13:18 | CT ---
EXAM DATE: 06/11/17 PATIENT'S AGE: 41 Patient: ABELARDO TATUM Facility: [place], [place] Site . Site : 1975 Study: CT Spine Cervical [id number]/28/2018 1:33:07 AM Ordering Physician: Delmi Montalvo Final Report: INDICATION: Fell on face. TECHNIQUE: CT cervical spine without i.v. contrast. Coronal and sagittal reformats were obtained. COMPARISON: None FINDINGS: Vertebral alignment: Alignment is normal. Vertebrae: No acute fractures or aggressive osseous lesions are identified. Discs and facet joints: Mild degree of multilevel degenerative disc disease. Facet joints are normally aligned at all levels. Extraspinal findings: The prevertebral soft tissues are unremarkable in appearance. Coarse calcifications in left thyroid lobe. The visualized lung apices and mediastinum are unremarkable. IMPRESSION: 1. No acute osseous injuries are identified. Dictated by Tj Olsen MD @ 06/11/2017 1:47:44 AM Please note that all CT scans at this facility use dose modulation, iterative reconstruction, and/or weight-based dosing when appropriate to reduce radiation dose to as low as reasonably achievable. Dictated by: Tj Olsen MD @ 06/11/2017 01:47:49 (Electronic Signature) Report Signed by Proxy. [facility]
--- NOTE | 2017-06-13 13:19 | CT ---
EXAM DATE: 06/11/17 PATIENT'S AGE: 41 Patient: ABELARDO TATUM Facility: [place], [place] Site . Site : 1975 Study: CT Facial [id number]/28/2018 1:35:37 AM Ordering Physician: Delmi Montalvo Final Report: INDICATION: Fell on face. Large gash to forehead. TECHNIQUE: CT maxillofacial without contrast. COMPARISON: None. FINDINGS: Facial bones: No fractures or bone lesions. Specifically the nasal bones, temporomandibular joints, maxilla and mandible appear intact. Orbits and globes: Unremarkable. Sinuses: No acute or significant findings. Soft tissues: Unremarkable. IMPRESSION: No sign of acute injury. Dictated by Tj Olsen MD @ 06/11/2017 1:53:11 AM Please note that all CT scans at this facility use dose modulation, iterative reconstruction, and/or weight-based dosing when appropriate to reduce radiation dose to as low as reasonably achievable. Dictated by: Tj Olsen MD @ 06/11/2017 01:53:17 (Electronic Signature) Report [facility] Proxy. [facility]
== END 2017-06-11 06:36 | disposition home or self-care (01) ==
LOC: MW.ED 00:42 → MW.SDS 02:52 → MW.MS 05:00 → MW.SDS 06:36
PROVIDERS: ATTEND Surgery
DX: S01.81XA Laceration without foreign body of other part of head, initial encounter (principal); M19.90 Unspecified osteoarthritis, unspecified site; F41.9 Anxiety disorder, unspecified; X58.XXXA Exposure to other specified factors, initial encounter; Z88.5 Allergy status to narcotic agent; Z79.899 Other long term (current) drug therapy; Z98.51 Tubal ligation status; Z87.891 Personal history of nicotine dependence
CPT/HCPCS: 13132; 13133; 36415; 70450; 70486; 72125; 80053; 80305; 81001; 84703; 85025; 85610; 90471; 90715; 93005; 96361; 96374; 96376; 99285; A9270; G0480; J0330; J1885; J2250; J2270; J2405; J3010; J7040; J0690; J2704

== ENCOUNTER 2017-07-26 10:48 | Day surgery (SDC) | payer BC ==
[~2017-07-26 10:48] MED LIST changes: -Lactated Ringers 1,000 ML IV SCH; -Lidocaine 1% 20 ML MDV ONE; +Sodium Chloride 0.9% 10 ML Syringe FLUSH PRN; +Sodium Chloride 0.9% 2.5 ML Syringe FLUSH PRN; +ceFAZolin 1 GM in Premix Bag 1 BAG IV ONE; -ceFAZolin 1 GM in Premix Bag 1 BAG IV SCH
[2017-07-26] MEDS ORDERED: Lactated Ringers 1,000 ML IV SCH (11:00)
--- NOTE | 2017-07-26 11:31 | PCM.PREANE ---
Preanesthetic Assessment - Anesthesia/Transfusion/Family Hx Anesthesia History: Prior Anesthesia Without Reaction Family History of Anesthesia Reaction: No Transfusion History: No Prior Transfusion(s) Intubation History: Unknown - Review of Systems General: No Symptoms Pulmonary: No Symptoms Cardiovascular: No Symptoms Gastrointestinal: No Symptoms Neurological: No Symptoms Other: Reports: None - Physical Assessment O2 Sat by Pulse Oximetry: 100 Respiratory Rate: 16 Vital Signs: Last Vital Signs Temp 36.4 C 07/26/17 11:15 Pulse 58 L 07/26/17 11:15 Resp 16 07/26/17 11:15 BP 135/78 07/26/17 11:15 Pulse Ox 100 07/26/17 11:15 Height: 1.66 m Weight: 58.967 kg ASA Class: 2 Mental Status: Alert & Oriented x3 Airway Class: Mallampati = 1 Dentition: Reports: Normal Dentition Thyro-Mental Finger Breadths: 3 Mouth Opening Finger Breadths: 3 ROM/Head Extension: Full Lungs: Clear to Auscultation, Normal Respiratory Effort Cardiovascular: Regular Rate, Regular Rhythm - Lab Values: Laboratory Last Values WBC 5.68 K/uL (4.0-11.0) 07/26/17 11:09 RBC 4.97 M/uL (4.30-5.90) 07/26/17 11:09 Hgb 14.8 g/dL (12.0-16.0) 07/26/17 11:09 Hct 42.8 % (36.0-46.0) 07/26/17 11:09 MCV 86.1 fL (80.0-98.0) 07/26/17 11:09 MCH 29.8 pg (27.0-32.0) 07/26/17 11:09 MCHC 34.6 g/dL (31.0-37.0) 07/26/17 11:09 RDW Std Deviation 41.3 fl (28.0-62.0) 07/26/17 11:09 RDW Coeff of Pallavi 13 % (11.0-15.0) 07/26/17 11:09 Plt Count 200 K/uL (150-400) 07/26/17 11:09 MPV 11.10 fL (7.40-12.00) 07/26/17 11:09 Nucleated RBC % 0.0 /100WBC 07/26/17 11:09 Nucleated RBCs # 0 K/uL 07/26/17 11:09 - Allergies Allergies/Adverse Reactions: Allergies Allergy/AdvReac Type Severity Reaction Status Date / Time codeine Allergy Nausea Verified 07/21/17 12:52 - Blood Blood Available: No - Anesthesia Plan Pre-Op Medication Ordered: None - Acknowledgements Anesthesia Type Planned: General Anesthesia Pt an Appropriate Candidate for the Planned Anesthesia: Yes Alternatives and Risks of Anesthesia Discussed w Pt/Guardian: Yes Pt/Guardian Understands and Agrees with Anesthesia Plan: Yes PreAnesthesia Questionnaire - Past Health History Medical/Surgical History: Denies Medical/Surgical History HEENT History: Reports: Other (See Below) Other HEENT History: wears glasses Cardiovascular History: Reports: None Respiratory History: Reports: None Gastrointestinal History: Reports: Other (See Below) Other Gastrointestinal History: hx gastric ulcer, Genitourinary History: Reports: Renal Calculus, Other (See Below) Other Genitourinary History: history of kidney stones WRAPPER OFF History: Reports: Musculoskeletal History: Reports: Arthritis Neurological History: Reports: Other (See Below) Other Neuro History: facial surgery due to head injury Psychiatric History: Reports: Anxiety, Depression Endocrine/Metabolic History: Reports: None Hematologic History: Reports: None Immunologic History: Reports: None Oncologic (Cancer) History: Reports: None Dermatologic History: Reports: Psoriasis - Infectious Disease History Infectious Disease History: Reports: Chicken Pox - Past Surgical History Head Surgeries/Procedures: Reports: None HEENT Surgical History: Reports: Oral Surgery, Other (See Below) (facial surgery ) Other HEENT Surgeries/Procedures: wisdom teeth Cardiovascular Surgical History: Reports: None Respiratory Surgical History: Reports: None GI Surgical History: Reports: EGD Female Surgical History: Reports: LEEP, Tubal Ligation Endocrine Surgical History: Reports: None Neurological Surgical History: Reports: None Musculoskeletal Surgical History: Reports: Arthroscopic Knee, Other (See Below) Other Musculoskeletal Surgeries/Procedures:: rt knee scope x2, left knee scope x3 Oncologic Surgical History: Reports: None - SUBSTANCE USE Smoking Status *Q: Former Smoker (quit 01/01) Recreational Drug Use History: No - HOME MEDS Home Medications: Home Meds Lactobac Cmb #3/Fos/Pantethine [Probiotic & Acidophilus] 1 cap PO DAILY [History] cloNIDine HCl [Catapres] 0.1 mg PO BEDTIME 10/06/16 [History] Raspberry Ketone [Raspberry Ketones] 100 mg PO DAILY 04/01/17 [History] Multivit-Min/Iron/Folic/Nft352 [Hair, Skin and Nails Tablet] 1 tab PO DAILY 08/31 [History] traZODone HCl [Trazodone HCl] 100 mg PO BEDTIME 07/21/17 [History] - CURRENT (IN HOUSE) MEDS Current Meds: Current Medications Lactated Ringer's (Ringers, Lactated) 1,000 mls @ 125 mls/hr IV ASDIRECTED CHEKO Sodium Chloride (Saline Flush) 10 ml FLUSH ASDIRECTED PRN PRN Reason: Keep Vein Open Sodium Chloride (Saline Flush) 2.5 ml FLUSH ASDIRECTED PRN PRN Reason: Keep Vein Open Discontinued Medications Cefazolin Sodium/Dextrose 1 gm (/ Premix) 50 mls @ 100 mls/hr IV ONETIME ONE Stop: 07/26/17 05:29
[2017-07-26] MEDS ORDERED: Scopolamine 1.5 MG Transdermal Patch TRDERM PRN (11:36)
[2017-07-26 12:15] LABS: CHLORIDE,CL 106 mmol/L (98-107); SODIUM,NA 142 mmol/L (136-145)
[2017-07-26] MEDS ORDERED: Midazolam 1 MG/ML 2 ML SDV IVPUSH ONE (13:52)
[2017-07-26] MEDS ORDERED: Midazolam 1 MG/ML 2 ML SDV ONE ×2 (13:56→14:47)
[2017-07-26] MEDS ORDERED: Propofol 200 MG/20 ML SDV ONE (14:47)
[2017-07-26] MEDS ORDERED: Ondansetron 4 MG/2 ML SDV ONE (14:47)
[2017-07-26] MEDS ORDERED: Rocuronium 10 MG/ML 10 ML Syringe ONE (14:47)
[2017-07-26] MEDS ORDERED: Dexamethasone 4 MG/ML 5 ML MDV ONE (14:47)
[2017-07-26] MEDS ORDERED: Lidocaine 2% 5 ML SDV ONE (14:47)
[2017-07-26] MEDS ORDERED: fentaNYL 250 MCG/5 ML SDV ONE (14:47)
[2017-07-26] MEDS ORDERED: ceFAZolin 1 GM Vial ONE (14:48)
[2017-07-26] MEDS ORDERED: diphenhydrAMINE 50 MG/ML SDV ONE (14:49)
[2017-07-26] MEDS ORDERED: Methylene Blue 50 MG/10 ML Ampule ONE (14:50)
[2017-07-26] MEDS ORDERED: Fluorescein 5 ML Vial ONE (14:51)
[2017-07-26] MEDS ORDERED: Bupivacaine 0.25% 10 ML SDV ONE (14:51)
[2017-07-26] MEDS ORDERED: HYDROmorphone 2 MG/ML SDV ONE (16:29)
[2017-07-26] MEDS ORDERED: Furosemide 40 MG/4 ML VIAL ONE (16:46)
[2017-07-26] MEDS ORDERED: Ketamine 500 mg/10 ML MDV ONE (16:46)
[2017-07-26] MEDS ORDERED: fentaNYL 100 MCG/2 ML SDV ONE (17:02)
[2017-07-26] MEDS ORDERED: Aluminum Hydroxide/Magnesium Hydroxide/Simethicone Susp 30 ML Cup PO PRN (17:52)
[2017-07-26] MEDS ORDERED: Acetaminophen/oxyCODONE 325-5 MG Tab PO PRN (17:52)
[2017-07-26] MEDS ORDERED: Ondansetron 4 MG/2 ML SDV IVPUSH PRN (17:52)
[2017-07-26] MEDS ORDERED: Promethazine 25 MG/ML SDV IM PRN (17:52)
[2017-07-26] MEDS ORDERED: Meperidine PF 25 MG/ML Syringe ONE (17:54)
--- NOTE | 2017-07-26 18:04 | PCM.OPNOTE ---
- General Post-Op/Procedure Note Date of Surgery/Procedure: 07/26/17 Operative Procedure(s): LAVH/bilateral salpingectomy/cystoscopy Findings: 8-10 week uterus, boggy with fibroids, paratubal cysts, bilateral patent ureters Pre Op Diagnosis: menorrhagia Post-Op Diagnosis: Same Anesthesia Technique: General ET Tube Primary Surgeon: Tere Turner Lead Sprinkler: Mary Neff Pathology: uterus, cervix, bilateral fallopian tubes Fluid Replacement, Intraop: 2,000 EBL in mLs: 400 Complications: none known Condition: Good Free Text/Narrative:: Dictation [id number]
[2017-07-26] MEDS: fentaNYL 100 MCG/2 ML SDV IVPUSH PRN ×6 (18:13→21:48)
--- NOTE | 2017-07-26 18:40 | PCM.POSTAN ---
POST ANESTHESIA ASSESSMENT - MENTAL STATUS Mental Status: Alert, Oriented - RESPIRATORY Respiratory Status: Respiratory Rate WNL, Airway Patent, O2 Saturation Stable - CARDIOVASCULAR CV Status: Pulse Rate WNL, Blood Pressure Stable - GASTROINTESTINAL GI Status: No Symptoms - PAIN Pain Score: 4 - POST OP HYDRATION Hydration Status: Adequate & Stable
[2017-07-26] MEDS: Acetaminophen/oxyCODONE 325-5 MG Tab PO PRN ×2 (20:01→23:51)
[2017-07-26] MEDS: Docusate Sodium 100 MG Cap PO SCH (20:02)
--- NOTE | 2017-07-26 21:33 | OR ---
SURGEON: Tere Turner M.D. DATE OF PROCEDURE: 07/26/2017 PREOPERATIVE DIAGNOSES: 1. Menorrhagia. 2. Uterine fibroids. POSTOPERATIVE DIAGNOSES: 1. Menorrhagia. 2. Uterine fibroids. PROCEDURES: Laparoscopic-assisted vaginal hysterectomy, bilateral salpingectomy, cystoscopy. ELECTRONIC INTELLIGENCE OFFICER: Mary Neff M.D. ANESTHESIA: General endotracheal anesthesia. FLUIDS: 2000 mL of crystalloid. ESTIMATED BLOOD LOSS: 100 mL. COMPLICATIONS: None. FINDINGS: 8 to 10-week boggy uterus with fibroids, bilateral paratubal cysts. DISPOSITION: The patient to PACU. SPECIMENS: Pathology. PROCEDURE IN DETAIL: Iris is a 41-year-old female, who has had ongoing difficulty of menorrhagia. She no longer desires hormone therapy, would like to proceed with surgical intervention, definitively, in the form of hysterectomy. She also has history of severe cervical dysplasia. Risks of procedures were discussed. Proper consent was obtained. The patient was taken to operating room where she underwent general anesthesia, was placed in modified dorsal lithotomy position, was prepped and draped in usual sterile fashion. Wall to gravity. SCDs to lower extremities. Received Ancef prophylactically. After being prepped and draped in usual sterile fashion, time-out was performed. A speculum was introduced in the vagina. The cervix was grasped with an Allis clamp followed by single-tooth tenaculum clamp. Cervix was stenotic, had to be dilated to 5 mm to allow introduction of the HUMI uterine manipulator. Once this was introduced, balloon was insufflated. All instruments other than the manipulator were removed from the vagina. Gloves changed. Attention turned abdominally. Infraumbilically in the midline, a 5 mm incision was created carried after prepping the region with 0.25% Marcaine. Please see nurse's notes for total amount dispensed. Anterior abdominal wall tented upwards. A Veress needle was introduced. Saline hanging drop test was performed. Pneumoperitoneum was achieved. The Veress needle was removed. A 5- mm trocar introduced with the laparoscope introduction, was able to visualize peritoneal contents. Right lower quadrant and left lower quadrant 5 mm trocar were introduced after prepping these regions with 0.25% Marcaine and creating 5 mm skin incisions. These trocars were introduced under direct visualization. The uterus was mobile. Her fibroids were present. The ovaries appeared normal. There were paratubal cysts along the tube. It was clear that the patient had a previous tubal ligation. The pelvic sidewalls were inspected and the ureters were seen peristalsing deep in the pelvis wall away from the operative field. The left fallopian tube fimbria was grasped and using LigaSure, salpingectomy was performed to the level of the cornua. A further pedicle involving the utero tubo-ovarian pedicle was able to be secured with LigaSure, cauterized, and transected. One further pedicle was able to be secured, cauterized, and transected. Attention was now turned to the left side. In a similar fashion, the salpingectomy was performed as well as securing the first two pedicles along the uterus. The LigaSure was now introduced infraumbilically with camera on the sidewalls. The remainder of pedicles were secured using LigaSure, moved along the broad ligament, and the upper portion of the cardinal ligament, and base of cardinal ligament on either side. The uterovesical reflection was visualized. Bladder flap was created with the LigaSure. Bladder was mobilized away from lower uterine segment and cervix. Pelvis was irrigated, so could proceed with vaginal portion of the case. It is noted that the patient has quite a lot of back bleeding at this juncture despite doing double cautery with the LigaSure x2 on each pedicle. Attention was now turned vaginally after removing all laparoscopic instruments and releasing pneumoperitoneum. The bladder was released and allowed to be drained. A weighted speculum was introduced to vagina as well as sidewall retractors, and anterior Lauro. After HUMI uterine manipulator was removed, the cervix was grasped with a Bharat clamp and tented downwards. The cervix was now circumscribed with Bovie cautery anterior and posteriorly overlying mucosa was mobilized away from the underlying peritoneum. The posterior peritoneum was tented downwards and entered sharply. Longer weighted speculum was replaced with the shorter. Anteriorly, the anterior cul-de-sac was able to be entered sharply with Metzenbaum scissors. Anterior [place] mobilized the bladder away from the operative field. HUMIs were utilized to secure the uterosacral ligaments on either side. These pedicles transected and suture ligated with 2-0 Vicryl. Further pedicle on either side was able to be secured, transected, and suture ligated. Once again, the patient is very oozy, even her bladder pillars have much more than usual blood expression when they are transected. The uterus and fallopian tubes were now removed and handed off to poultry service technician to be sent to pathology. The pedicles were closely inspected. The uterosacral ligaments on either side were plicated to the vaginal apex. Upper pedicles were inspected after placing a mini-lap in order to allow inspection more closely. There were no areas of bleeding noted. Therefore, the packing was removed and the cuff was closed using 0 Vicryl continuous running locked fashion. The Wall catheter balloon was desufflated. Catheters removed and a cystoscope was introduced after instilling the IV fluorescein and Lasix. The dome of the bladder was able to be visualized followed by the trigone. The left ureteral orifice followed by the right ureteral orifice able to be visualized. Fluorescein dyed urine was seen streaming from them helping to ensure ureteral patency. The bladder was now drained. Wall catheter was replaced. The vaginal cuff was once again inspected and found to be hemostatic. All instruments were removed from the vagina. The gloves were changed. Attention returned abdominally. Pneumoperitoneum was once again achieved. Laparoscope was introduced. The bowel was mobilized away from the pelvis in order to visualize pedicles. The pelvis was copiously irrigated and suction dried. Area of oozing along the left ovary was able to be secured with LigaSure and cauterized. Hemostasis thereafter evident. Pelvis once again copiously irrigated, suction dried. Relief pressure was decreased to 5 mmHg. There were no areas of bleeding noted. Hemostasis appeared evident. Therefore, the pneumoperitoneum was released after the pelvis was suction dried. The right and left quadrant trocars were removed under direct visualization followed by laparoscopic infraumbilical trocar. The pneumoperitoneum was released as much as possible. The skin edges were reapproximated using 3-0 Monocryl in subcuticular fashion. Sponge, instrument, needle counts were correct x2. The patient has tolerated the procedure well overall. She will go to PACU in stable condition. Specimen is pathology. JAMEE / MAKAYLA /[id number]
[2017-07-26] MEDS: Morphine 4 MG/ML Syringe IVPUSH PRN (23:22)
[2017-07-27] MEDS: Morphine 4 MG/ML Syringe IVPUSH PRN (01:50)
[2017-07-27] MEDS: Acetaminophen/oxyCODONE 325-5 MG Tab PO PRN ×2 (04:38→08:46)
--- NOTE | 2017-07-27 07:58 | PCM.PN ---
- General Info Date of Service: 07/27/17 Functional Status: Reports: Pain Controlled, Tolerating Diet, Ambulating - Review of Systems General: Denies: Fever, Weakness Pulmonary: Denies: Shortness of Breath Cardiovascular: Denies: Chest Pain, Palpitations, Lightheadedness Gastrointestinal: Denies: Nausea, Vomiting Genitourinary: Denies: Flank Pain Neurological: Denies: Confusion, Headache - Patient Data Vitals - Most Recent: Last Vital Signs Temp 36.2 C 07/27/17 04:30 Pulse 58 L 07/27/17 04:30 Resp 16 07/27/17 06:53 BP 105/59 L 07/27/17 04:30 Pulse Ox 97 07/27/17 04:30 Weight - Most Recent: 58.967 kg I&O - Last 24 Hours: Intake & Output 07/26/17 07/27/17 07/27/17 22:59 06:59 14:59 Intake Total 5200 600 Output Total 545 550 Balance 4655 50 Lab Results Last 24 Hours: Laboratory Results - last 24 hr 07/26/17 07/26/17 07/26/17 Range/Units 11:09 11:09 11:09 WBC 5.68 (4.0-11.0) K/uL RBC 4.97 (4.30-5.90) M/uL Hgb 14.8 (12.0-16.0) g/dL Hct 42.8 (36.0-46.0) % MCV 86.1 (80.0-98.0) fL MCH 29.8 (27.0-32.0) pg MCHC 34.6 (31.0-37.0) g/dL RDW Std Deviation 41.3 (28.0-62.0) fl RDW Coeff of Pallavi 13 (11.0-15.0) % Plt Count 200 (150-400) K/uL MPV 11.10 (7.40-12.00) fL Neut % (Auto) (48.0-80.0) % Lymph % (Auto) (16.0-40.0) % [place] % (Auto) (0.0-15.0) % Eos % (Auto) (0.0-7.0) % Baso % (Auto) (0.0-1.5) % Neut # (Auto) (1.4-5.7) K/uL Lymph # (Auto) (0.6-2.4) K/uL [place] # (Auto) (0.0-0.8) K/uL Eos # (Auto) (0.0-0.7) K/uL Baso # (Auto) (0.0-0.1) K/uL Nucleated RBC % 0.0 /100WBC Nucleated RBCs # 0 K/uL Sodium 142 (136-145) mmol/L Potassium 3.9 (3.5-5.1) mmol/L Chloride 106 (98-107) mmol/L Carbon Dioxide 21.7 (21.0-32.0) mmol/L BUN 11 (7.0-18.0) mg/dL Creatinine 0.8 (0.6-1.0) mg/dL Est Cr Clr Drug Dosing 84.12 mL/min Estimated GFR (MDRD) > 60.0 ml/min Glucose 92 (74-106) mg/dL Calcium 9.3 (8.5-10.1) mg/dL HCG, Qual NEGATIVE (NEG) Blood Type Antibody Screen 07/26/17 07/27/17 07/27/17 Range/Units 11:09 05:25 05:25 WBC 10.02 (4.0-11.0) K/uL RBC 3.86 L (4.30-5.90) M/uL Hgb 11.2 L (12.0-16.0) g/dL Hct 32.9 L (36.0-46.0) % MCV 85.2 (80.0-98.0) fL MCH 29.0 (27.0-32.0) pg MCHC 34.0 (31.0-37.0) g/dL RDW Std Deviation 40.1 (28.0-62.0) fl RDW Coeff of Pallavi 13 (11.0-15.0) % Plt Count 188 (150-400) K/uL MPV 11.10 (7.40-12.00) fL Neut % (Auto) 79.5 (48.0-80.0) % Lymph % (Auto) 12.9 L (16.0-40.0) % [place] % (Auto) 7.5 (0.0-15.0) % Eos % (Auto) 0.0 (0.0-7.0) % Baso % (Auto) 0.1 (0.0-1.5) % Neut # (Auto) 8.0 H (1.4-5.7) K/uL Lymph # (Auto) 1.3 (0.6-2.4) K/uL [place] # (Auto) 0.8 (0.0-0.8) K/uL Eos # (Auto) 0.0 (0.0-0.7) K/uL Baso # (Auto) 0.0 (0.0-0.1) K/uL Nucleated RBC % 0.0 /100WBC Nucleated RBCs # 0 K/uL Sodium 137 (136-145) mmol/L Potassium 4.1 (3.5-5.1) mmol/L Chloride 104 (98-107) mmol/L Carbon Dioxide 25.2 (21.0-32.0) mmol/L BUN 10 (7.0-18.0) mg/dL Creatinine 1.1 H (0.6-1.0) mg/dL Est Cr Clr Drug Dosing 61.18 mL/min Estimated GFR (MDRD) 54.7 ml/min Glucose 144 H (74-106) mg/dL Calcium 8.3 L (8.5-10.1) mg/dL HCG, Qual (NEG) Blood Type B POSITIVE Antibody Screen NEGATIVE Med Orders - Current: Current Medications Al Hydroxide/Mg Hydroxide (Mag-Al Plus) 30 ml PO Q4H PRN PRN Reason: Indigestion Docusate Sodium (Colace) 100 mg PO BID [facility] Last Admin: 07/26/17 20:02 Dose: 100 mg Fentanyl (Sublimaze) 50 mcg IVPUSH SEECOMMENT PRN PRN Reason: Pain (moderate 4-6) Last Admin: 07/26/17 21:48 Dose: 50 mcg Lactated Ringer's (Ringers, Lactated) 1,000 mls @ 125 mls/hr IV ASDIRECTED [facility] Last Admin: 07/26/17 11:28 Dose: 125 mls/hr Morphine Sulfate (Morphine) 4 mg IVPUSH Q2H PRN PRN Reason: Pain (severe 7-10) Last Admin: 07/27/17 01:50 Dose: 4 mg Ondansetron HCl (Zofran) 4 mg IVPUSH Q6H PRN PRN Reason: Nausea/Vomiting Last Admin: 07/26/17 21:50 Dose: 4 mg Oxycodone/Acetaminophen (Percocet 325-5 Mg) 1 tab PO Q4H PRN PRN Reason: Pain (moderate 4-6) Oxycodone/Acetaminophen (Percocet 325-5 Mg) 2 tab PO Q4H PRN PRN Reason: Pain (moderate 4-6) Last Admin: 07/27/17 04:38 Dose: 2 tab Promethazine HCl (Phenergan) 25 mg IM Q6H PRN PRN Reason: Nausea/Vomiting Scopolamine (Transderm-Scop) 1.5 mg TRDERM Q72H PRN PRN Reason: Nausea Last Admin: 07/26/17 11:45 Dose: 1.5 mg Sodium Chloride (Saline Flush) 10 ml FLUSH ASDIRECTED PRN PRN Reason: Keep Vein Open Sodium Chloride (Saline Flush) 2.5 ml FLUSH ASDIRECTED PRN PRN Reason: Keep Vein Open Discontinued Medications Bupivacaine HCl (Sensorcaine-Mpf 0.25%) Confirm Administered Dose 20 ml .ROUTE .STK-MED ONE Stop: 07/26/17 14:52 Cefazolin Sodium (Ancef) Confirm Administered Dose 1 gm .ROUTE .STK-MED ONE Stop: 07/26/17 14:49 Dexamethasone (Dexamethasone) Confirm Administered Dose 20 mg .ROUTE .STK-MED ONE Stop: 07/26/17 14:48 Diphenhydramine HCl (Benadryl) Confirm Administered Dose 50 mg .ROUTE .STK-MED ONE Stop: 07/26/17 14:50 Fentanyl (Sublimaze) Confirm Administered Dose 250 mcg .ROUTE .STK-MED ONE Stop: 07/26/17 14:48 Fentanyl (Sublimaze) Confirm Administered Dose 100 mcg .ROUTE .STK-MED ONE Stop: 07/26/17 17:03 Fluorescein Sodium (Ak-Fluor) Confirm Administered Dose 5 ml .ROUTE .STK-MED ONE Stop: 07/26/17 14:52 Furosemide (Lasix) Confirm Administered Dose 40 mg .ROUTE .STK-MED ONE Stop: 07/26/17 16:47 Hydromorphone HCl (Dilaudid) Confirm Administered Dose 2 mg .ROUTE .STK-MED ONE Stop: 07/26/17 16:30 Cefazolin Sodium/Dextrose 1 gm (/ Premix) 50 mls @ 100 mls/hr IV ONETIME ONE Stop: 07/26/17 05:29 Last Admin: 07/26/17 19:23 Dose: Not Given Acetaminophen (Ofirmev) Confirm Administered Dose 100 mls @ as directed IV .STK- MED ONE Stop: 07/26/17 14:54 Ketamine HCl (Ketalar) Confirm Administered Dose 500 mg .ROUTE .STK-MED ONE Stop: 07/26/17 16:47 Lidocaine (Xylocaine-Mpf 2%) Confirm Administered Dose 5 ml .ROUTE .STK-MED ONE Stop: 07/26/17 14:48 Meperidine HCl (Demerol) Confirm Administered Dose 25 mg .ROUTE .STK-MED ONE Stop: 07/26/17 17:55 Last Admin: 07/26/17 19:23 Dose: Not Given Methylene Blue (Provayblue) Confirm Administered Dose 50 mg .ROUTE .[facility]-MED ONE Stop: 07/26/17 14:51 Midazolam HCl (Versed 1 Mg/Ml) 2 mg IVPUSH ONETIME ONE Stop: 07/26/17 13:53 Last Admin: 07/26/17 13:58 Dose: 2 mg Midazolam HCl (Versed 1 Mg/Ml) Confirm Administered Dose 2 mg .ROUTE .STK-MED ONE Stop: 07/26/17 13:57 Last Admin: 07/26/17 19:23 Dose: Not Given Midazolam HCl (Versed 1 Mg/Ml) Confirm Administered Dose 2 mg .ROUTE .ST-MED ONE Stop: 07/26/17 14:48 Ondansetron HCl (Zofran) Confirm Administered Dose 4 mg .ROUTE .STK-MED ONE Stop: 07/26/17 14:48 Propofol (Diprivan 20 Ml) Confirm Administered Dose 200 mg .ROUTE .STK-MED ONE Stop: 07/26/17 14:48 Rocuronium Avery (Zemuron) Confirm Administered Dose 100 mg .ROUTE .STK-MED ONE Stop: 07/26/17 14:48 - Exam General: Alert, Oriented Lungs: Normal Respiratory Effort Cardiovascular: Regular Rate, Regular Rhythm GI/Abdominal Exam: Normal Bowel Sounds, Soft Back Exam: No: CVA Tenderness (L), CVA Tenderness (R) Extremities: No: Pedal Edema, Faith's Sign Skin: Warm, Dry, Intact Wound/Incisions: Healing Well, Dressing Dry and Intact Psy/Mental Status: Alert, Normal Affect - Problem List & Annotations (1) Menorrhagia SNOMED Code(s): 867875200 Code(s): N92.0 - EXCESSIVE AND FREQUENT MENSTRUATION WITH REGULAR CYCLE Status: Acute Current Visit: Yes - Problem List Review Problem List Initiated/Reviewed/Updated: Yes - My Orders Last 24 Hours: My Active Orders 07/26/17 17:52 Patient Status [ADT] Routine May Shower [RC] ASDIRECTED Notify Provider Intake and Out [RC] ASDIRECTED Notify Provider Vital Signs [RC] ASDIRECTED Oxygen Therapy [RC] ASDIRECTED RT Incentive Spirometry [RC] Q2HWA Up With Assistance [RC] PER UNIT ROUTINE Up ad Tania [RC] PER UNIT ROUTINE Vital Signs [RC] PER UNIT ROUTINE Acetaminophen/oxyCODONE [Percocet 325-5 MG] 1 tab PO Q4H PRN Acetaminophen/oxyCODONE [Percocet 325-5 MG] 2 tab PO Q4H PRN Alum Hydrox/Mag Hydrox/Simeth [Mag-Al Plus] 30 ml PO Q4H PRN Morphine 4 mg IVPUSH Q2H PRN Ondansetron [Zofran] 4 mg IVPUSH Q6H PRN Promethazine [Phenergan] 25 mg IM Q6H PRN Ice Therapy [OM.PC] Per Unit Routine Peripheral IV Discontinue [OM.PC] Routine Sequential Compression Device [OM.PC] Per Unit Routine Resuscitation Status Routine 07/26/17 21:00 Docusate Sodium [Colace] 100 mg PO BID 07/26/17 Dinner Regular Diet [DIET] 07/27/17 07:53 Ready for Discharge [RC] PER UNIT ROUTINE - Assessment Assessment:: POD 1 status post LAVH/bilateral salpingectomy/cystoscopy - Plan Plan:: patient is doing well overall--described operative findings. patient would like to go home later. Wall catheter just removed. Ambulate halls. Discharge to home later today once voids. Discharge instructions reviewed. Infection and bleeding warnings reviewed. Follow up at [facility] 2 and 6 weeks. Repeat BMP at postop appointment.
[2017-07-27] MEDS: Docusate Sodium 100 MG Cap PO SCH (08:41)
[2017-07-27 09:39] VITALS: BP 100/60
== END 2017-07-27 11:20 | disposition home or self-care (01) ==
LOC: MW.SDS 10:48 → MW.OB 22:25 → MW.SDS 07-27 11:20
PROVIDERS: ATTEND Obstetrics & Gynecology
DX: D25.1 Intramural leiomyoma of uterus (principal); D25.0 Submucous leiomyoma of uterus; N83.8 Other noninflammatory disorders of ovary, fallopian tube and broad ligament; N87.9 Dysplasia of cervix uteri, unspecified; Q50.5 Embryonic cyst of broad ligament; F41.9 Anxiety disorder, unspecified; F32.9 Major depressive disorder, single episode, unspecified; Z87.891 Personal history of nicotine dependence; Z79.899 Other long term (current) drug therapy; Z98.51 Tubal ligation status; Z88.5 Allergy status to narcotic agent
CPT/HCPCS: 36415; 58552; 80048; 84703; 85025; 85027; 86850; 86900; 86901; A9270; J0690; J1100; J1170; J1200; J1940; J2175; J2250; J2270; J2405; J3010; J7120; J2704

== ENCOUNTER 2017-10-30 08:39 | Emergency (ER) | payer BC ==
[2017-10-30] MEDS ORDERED: Sodium Chloride 0.9% 2.5 ML Syringe FLUSH PRN (08:42)
[2017-10-30] MEDS ORDERED: Ondansetron 4 MG/2 ML SDV IVPUSH ONE (08:42)
[2017-10-30] MEDS ORDERED: Sodium Chloride 0.9% 10 ML Syringe FLUSH PRN (08:42)
[2017-10-30] MEDS ORDERED: Sodium Chloride 0.9% 1,000 ML IV ONE (08:51)
--- NOTE | 2017-10-30 08:52 | EDM.PDOC ---
ED HPI GENERAL MEDICAL PROBLEM - General Stated Complaint: VOMITING Time Seen by Provider: 10/30/17 08:41 Source of Information: Reports: Patient History Limitations: Reports: No Limitations - History of Present Illness INITIAL COMMENTS - FREE TEXT/NARRATIVE: History of present illness: []Patient was drinking heavily last night celebrating her 's birthday this morning went to the bathroom and her heard her fall off the toilet. To the bathroom and she was unconscious then awoke vomiting. Patient is awake and alert complaining of headache denies any neck pain or any other injuries. Review of systems: As per history of present illness and below otherwise all systems reviewed and negative. Past medical history: As per history of present illness and as reviewed below otherwise noncontributory. Surgical history: As per history of present illness and as reviewed below otherwise noncontributory. Social history: No reported history of drug or alcohol abuse. Family history: As per history of present illness and as reviewed below otherwise noncontributory. Physical exam: General: Well developed, well nourished in NAD HEENT: Superficial abrasion left forehead, normocephalic, pupils reactive, negative for conjunctival pallor or scleral icterus, mucous membranes moist, throat clear, neck supple, nontender, step-offs trachea midline. TMs clear Lungs: Clear to auscultation, breath sounds equal bilaterally, chest nontender. Heart: S1S2, regular, negative for clicks, rubs, or JVD. Abdomen: Soft, nondistended, nontender. Negative for masses or hepatosplenomegaly. Negative for costovertebral tenderness. Pelvis: Stable nontender. Genitourinary: Deferred. Rectal: Deferred. Extremities: Atraumatic, negative for cords or calf pain. Neurovascular unremarkable. Neuro: Awake, alert, oriented. Cranial nerves II through XII unremarkable. Cerebellum unremarkable. Motor and sensory unremarkable throughout. Exam nonfocal. Skin:warm and dry Diagnostics: CT head negative, glucose equals 96 Therapeutics: 1 L normal saline given, Motrin and Zofran given ED Course: Unremarkable Impression: Vasovagal syncope, head contusion Prescriptions: Zofran Plan: Take meds as reactive follow-up with primary care return if symptoms worsen or change Definitive disposition and diagnosis as appropriate pending reevaluation and review of above. Headache Pain Score (Numeric/FACES): 10 - Related Data Allergies Allergy/AdvReac Type Severity Reaction Status Date / Time codeine Allergy Nausea Verified 10/30/17 08:54 Home Meds: Home Meds cloNIDine HCl [Catapres] 0.1 mg PO BEDTIME 10/06/16 [History] traZODone HCl [Trazodone HCl] 100 mg PO BEDTIME PRN 07/21/17 [History] Doxepin [SINEquan] 25 mg PO BEDTIME 10/30/17 [History] Ondansetron HCl [Zofran] 4 mg PO Q4HR #12 tablet 10/30/17 [Rx] Past Medical History - Past Health History Medical/Surgical History: Denies Medical/Surgical History HEENT History: Reports: Other (See Below) Other HEENT History: wears glasses Cardiovascular History: Reports: None Respiratory History: Reports: None Gastrointestinal History: Reports: Other (See Below) Other Gastrointestinal History: hx gastric ulcer, Genitourinary History: Reports: Renal Calculus, Other (See Below) Other Genitourinary History: history of kidney stones [employer] History: Reports: Musculoskeletal History: Reports: Arthritis Neurological History: Reports: Other (See Below) Other Neuro History: facial surgery due to head injury Psychiatric History: Reports: Anxiety, Depression Endocrine/Metabolic History: Reports: None Hematologic History: Reports: None Immunologic History: Reports: None Oncologic (Cancer) History: Reports: None Dermatologic History: Reports: Psoriasis - Infectious Disease History Infectious Disease History: Reports: Chicken Pox - Past Surgical History Head Surgeries/Procedures: Reports: None HEENT Surgical History: Reports: Oral Surgery, Other (See Below) (facial surgery ) Other HEENT Surgeries/Procedures: wisdom teeth Cardiovascular Surgical History: Reports: None Respiratory Surgical History: Reports: None GI Surgical History: Reports: EGD Female Surgical History: Reports: LEEP, Tubal Ligation Endocrine Surgical History: Reports: None Neurological Surgical History: Reports: None Musculoskeletal Surgical History: Reports: Arthroscopic Knee, Other (See Below) Other Musculoskeletal Surgeries/Procedures:: rt knee scope x2, left knee scope x3 Oncologic Surgical History: Reports: None Social & Family History - Family History Family Medical History: Noncontributory - Caffeine Use Caffeine Use: Reports: Coffee Caffeine Use Comment: 1 cup/day ED ROS GENERAL - Review of Systems Review Of Systems: ROS reveals no pertinent complaints other than HPI. ED EXAM, HEAD INJURY - Physical Exam Exam: See Below (See history of present illness) Course - Vital Signs Last Recorded V/S: Last Vital Signs Temp 96.9 F 10/30/17 08:50 Pulse 82 10/30/17 08:50 Resp 18 10/30/17 08:50 BP 136/69 10/30/17 08:50 Pulse Ox 97 10/30/17 08:50 - Orders/Labs/Meds Orders: Active Orders 24 hr Category Date Time Status Head wo Cont [CT] Stat Exams 10/30/17 08:42 Taken Sodium Chloride 0.9% [Saline Flush] Med 10/30/17 08:42 Active 10 ml FLUSH ASDIRECTED PRN Sodium Chloride 0.9% [Saline Flush] Med 10/30/17 08:42 Active 2.5 ml FLUSH ASDIRECTED PRN Saline Lock Insert [OM.PC] Stat Oth 10/30/17 08:42 Ordered Medication Orders Sodium Chloride (Saline Flush) 10 ml FLUSH ASDIRECTED PRN PRN Reason: Keep Vein Open Sodium Chloride (Saline Flush) 2.5 ml FLUSH ASDIRECTED PRN PRN Reason: Keep Vein Open Meds: Medications Generic Name Dose Route Start Last Admin Trade Name Freq PRN Reason Stop Dose Admin Sodium Chloride 10 ml 10/30/17 08:42 Saline Flush FLUSH ASDIRECTED PRN Keep Vein Open Sodium Chloride 2.5 ml 10/30/17 08:42 Saline Flush FLUSH ASDIRECTED PRN Keep Vein Open Discontinued Medications Generic Name Dose Route Start Last Admin Trade Name Freq PRN Reason Stop Dose Admin Sodium Chloride 1,000 mls @ 999 mls/hr 10/30/17 08:51 10/30/17 08:51 Normal Saline IV 10/30/17 09:51 999 mls/hr .Bolus ONE Administration Morphine Sulfate 4 mg 10/30/17 09:47 Morphine IVPUSH 10/30/17 09:48 ONETIME ONE Ondansetron HCl 4 mg 10/30/17 08:42 10/30/17 08:51 Zofran IVPUSH 10/30/17 08:43 4 mg ONETIME ONE Administration Departure - Departure Time of Disposition: 09:56 Disposition: Home, Self-Care 01 Condition: Good Clinical Impression: Vasovagal syncope Head contusion Qualifiers: Encounter type: initial encounter Laterality: unspecified laterality - Discharge Information *PRESCRIPTION DRUG MONITORING PROGRAM REVIEWED*: No *COPY OF PRESCRIPTION DRUG MONITORING REPORT IN PATIENT [place]: No Prescriptions: Ondansetron HCl [Zofran] 4 mg PO Q4HR #12 tablet Referrals: PCP,None [Primary Care Provider] - Additional Instructions: The following information is given to patients seen in the emergency department who are being discharged to home. This information is to outline your options for follow-up care. We provide all patients seen in our emergency department with a follow-up referral. The need for follow-up, as well as the timing and circumstances, are variable depending upon the specifics of your emergency department visit. If you don't have a primary care physician on staff, we will provide you with a referral. We always advise you to contact your personal physician following an emergency department visit to inform them of the circumstance of the visit and for follow-up with them and/or the need for any referrals to a consulting specialist. The emergency department will also refer you to a specialist when appropriate. This referral assures that you have the opportunity for follow-up care with a specialist. All of these measure are taken in an effort to provide you with optimal care, which includes your follow-up. Under all circumstances we always encourage you to contact your private physician who remains a resource for coordinating your care. When calling for follow-up care, please make the office aware that this follow-up is from your recent emergency room visit. If for any reason you are refused follow-up, please contact the Emergency Department at and asked to speak to the emergency department charge nurse. Take meds as directed, follow-up primary care ,return if symptoms worsen or change. Primary Care [address] [place] [id number] - My Orders Last 24 Hours: My Active Orders 10/30/17 08:42 Head wo Cont [CT] Stat Sodium Chloride 0.9% [Saline Flush] 10 ml FLUSH ASDIRECTED PRN Sodium Chloride 0.9% [Saline Flush] 2.5 ml FLUSH ASDIRECTED PRN Saline Lock Insert [OM.PC] Stat - Assessment/Plan Last 24 Hours: My Active Orders 10/30/17 08:42 Head wo Cont [CT] Stat Sodium Chloride 0.9% [Saline Flush] 10 ml FLUSH ASDIRECTED PRN Sodium Chloride 0.9% [Saline Flush] 2.5 ml FLUSH ASDIRECTED PRN Saline Lock Insert [OM.PC] Stat
[2017-10-30] MEDS ORDERED: Morphine 2 MG/ML Syringe IVPUSH ONE (09:47)
[2017-10-30 10:59] VITALS: BP 101/69
--- NOTE | 2017-11-01 09:43 | CT ---
EXAM DATE: 10/30/17 PATIENT'S AGE: 41 Patient: ABLEARDO TATUM Facility: [place], [place] Site . Site : [id number] Study: CT Head [id number]/[id number] 9:23:13 AM Ordering Physician: Sebastian Serrano Final Report: INDICATION: Fall, head injury. COMPARISON: 06/11/2017. TECHNIQUE: Noncontrast CT of the head. FINDINGS: Normal brain parenchymal morphology. No intracranial hemorrhage, focal edema, mass effect, or fracture. No midline shift. No abnormal ventricular dilatation. Normal calvarium and skull base. Visualized paranasal sinuses and mastoid air cells are clear. Visualized orbits are unremarkable. Small locules of gas and slight focal soft tissue swelling adjacent to the right frontal calvarium ( image 32) which may be due to reported trauma. IMPRESSION: 1. No acute intracranial abnormality. Please note that all CT scans at this facility use dose modulation, iterative reconstruction, and/or weight-based dosing when appropriate to reduce radiation dose to as low as reasonably achievable. Dictated by Tremaine Taylor MD @ Oct 30 2017 9:26AM (Electronic Signature) Report Signed by Proxy. [facility]
== END 2017-10-30 10:21 | disposition home or self-care (01) ==
LOC: MW.ED 08:39
DX: R55 Syncope and collapse (principal); S00.93XA Contusion of unspecified part of head, initial encounter; S00.81XA Abrasion of other part of head, initial encounter; Z88.5 Allergy status to narcotic agent; W18.11XA Fall from or off toilet without subsequent striking against object, initial encounter; Y92.002 Bathroom of unspecified non-institutional (private) residence as the place of occurrence of the external cause
CPT/HCPCS: 70450; 96361; 96374; 96375; 99284; J2270; J2405; J7040